=== PATIENT | male | born 1940 | race Caucasian/White ===

== ENCOUNTER → 2019-08-17 | Outpatient (CLI) | payer MEDICARE ==
--- NOTE | 2019-08-17 17:30 | RAD ---
CT HEAD WO CONTRAST Clinical indications: Mild cognitive impairment. COMPARISON: None available. Technique: Noncontrast axial cross sectional scanning of the head was performed. PQRS compliance Statement One or more of the following individualized dose reduction techniques were utilized for this study: 1. Automated exposure control 2. Adjustment of the mA and/or kV according to patient size 3. Use of iterative reconstruction technique Findings: No acute intracranial hemorrhage or midline shift or mass-effect or hydrocephalus or extra-axial fluid collection is seen. No focal hypodense area or sulci effacement is seen to indicate an acute infarct or edema radiographically. No skull fracture or pneumocephalus is seen. No opacification of the mastoid sinuses or the middle ear cavities or the paranasal sinuses is seen. The maxillary sinuses are not completely seen in this study. Impression: No acute intracranial abnormality is seen. Electronically signed by: Parth Cordova MD (08/17/2019 5:27 PM) [facility]
== END | disposition home or self-care (01) ==
LOC: CT 16:39
PROVIDERS: ATTEND Family Medicine
DX: G31.84 Mild cognitive impairment of uncertain or unknown etiology (principal)
CPT/HCPCS: 70450

== ENCOUNTER 2020-07-02 03:54 | Emergency (ER) | payer MEDICARE ==
[~2020-07-02] VITALS: Ht 177.8 cm; Wt 109.1 kg
[2020-07-02 04:13] VITALS: BP 149/79
--- NOTE | 2020-07-02 04:19 | PHYS DOC ---
General Adult EDM: Chief Complaint: FATIGUE HPI: HPI: 79-year-old male presents with generalized fatigue. The patient does not have a specific complaint but states that he feels "blah and not rested". He denies any pain. Denies changes in urinary or stool habits. He is getting ready to sell his house so he has been busy last couple of days. He admits to not taking all of his medications for 2 days. His recently and he will be selling his house. He denies fever or chills. Review of Systems: Review of Systems: Constitutional: Denies fever or chills. Fatigue Eyes: Denies change in visual acuity HENT: Denies nasal congestion or sore throat Respiratory: Denies cough or shortness of breath Cardiovascular: Denies chest pain or edema GI: Denies abdominal pain, nausea, vomiting, bloody stools or diarrhea : Denies dysuria Musculoskeletal: Denies back pain or joint pain Integument: Denies rash Neurologic: Denies headache, focal weakness or sensory changes Endocrine: Denies polyuria or polydipsia Lymphatic: Denies swollen glands Psychiatric: Denies depression or anxiety Allergies: Allergies: Allergies Coded Allergies Type Severity Reaction Last Updated Verified No Known Drug Allergies 07/02/20 No Physical Exam: PE: Constitutional: Well developed, well nourished, obese, no acute distress, non- toxic appearance. [] HENT: Normocephalic, atraumatic, bilateral external ears normal, oropharynx moist, no oral exudates, nose normal. [] Eyes: PERRLA, EOMI, conjunctiva normal, no discharge. [] Neck: Normal range of motion, no tenderness, supple, no stridor. [] Cardiovascular: Heart rate regular rhythm, no murmur [] Lungs & Thorax: Bilateral breath sounds clear to auscultation [] Abdomen: Bowel sounds normal, soft, no tenderness, no masses, no pulsatile masses. [] Skin: Warm, dry, no erythema, no rash. [] Back: No tenderness, no CVA tenderness. [] Extremities: No tenderness, no cyanosis, no clubbing, ROM intact, no edema. [] Neurologic: Alert and oriented X 3, normal motor function, normal sensory function, no focal deficits noted. [] Psychologic: Affect normal, judgement normal, mood normal. [] EKG: EKG: [] Radiology/Procedures: Radiology/Procedures: [] Heart Score: Risk Factors: Risk Factors: DM, Current or recent (<one month) smoker, HTN, HLP, family history of CAD, obesity. Risk Scores: Score 0 - 3: 2.5% MACE over next 6 weeks - Discharge Home Score 4 - 6: 20.3% MACE over next 6 weeks - Admit for Clinical Observation Score 7 - 10: 72.7% MACE over next 6 weeks - Early Invasive Strategies Course & Med Decision Making: Course & Med Decision Making Pertinent Labs and Imaging studies reviewed. (See chart for details) The patient's labs are unremarkable. His urinalysis is negative for infection. Her not sure exactly what causing the patient to feel fatigued. Maybe he just needs to get some more rest. I have reassured him with his negative results. He is stable for discharge at this time. [] Dragon Disclaimer: Dragon Disclaimer: This electronic medical record was generated, in whole or in part, using a voice recognition dictation system. Departure Departure: Impression: Primary Impression: Fatigue Disposition: 01 DC HOME SELF CARE/HOMELESS Condition: STABLE Referrals: MARLA BENZ MD (PCP) Patient Instructions: EVIE Rowe DO Jul 02, 2020 04:19
[2020-07-02] MEDS ORDERED: IV NORMAL SALINE 500ML 500 ML IV ONE (04:30)
[2020-07-02 04:52] LABS: BASO % 1 % (0-3); EOS # 0.3 x10^3/uL (0.0-0.7); EOS % 4 % (0-3); HEMATOCRIT 43.3 % (39.0-53.0); HEMOGLOBIN 14.3 g/dL (13.0-17.5); LYMPH # 1.2 x10^3/uL (1.0-4.8); LYMPH % 17 % (24-48); MEAN CORPUSCULAR HEMOGLOBIN 32 pg (25-35); MEAN CORPUSCULAR HGB CONC 33 g/dL (31-37); MEAN CORPUSCULAR VOLUME 98 fL (79-100); MONO # 0.9 x10^3/uL (0.0-1.1); MONO % 13 % (0-9); NEUT # 4.5 x10^3uL (1.8-7.7); NEUT % 65 % (31-73); PLATELET COUNT 184 x10^3/uL (140-400); RED BLOOD COUNT 4.44 x10^6/uL (4.30-5.70); RED CELL DISTRIBUTION WIDTH 13.9 % (11.5-14.5)
[2020-07-02 04:55] LABS: BILIRUBIN,URINE NEG (NEG); CLARITY,URINE CLEAR; COLOR,URINE YELLOW; GLUCOSE,URINE NEG (NEG)
[2020-07-02 04:56] LABS: BACTERIA,URINE 0 /HPF (0-FEW); NITRITE,URINE NEG (NEG); RBC,URINE 0 /HPF (0-2); SQUAMOUS EPITHELIAL CELL,UR MOD /LPF; UROBILINOGEN,URINE 0.2 mg/dL (0.2 mg/dL); WBC,URINE OCC /HPF (0-4)
[2020-07-02 04:57] LABS: CALCIUM 9.2 mg/dL (8.5-10.1); CREATININE 1.1 mg/dL (0.7-1.3); GFR 64.6; POTASSIUM 3.6 mmol/L (3.5-5.1)
[2020-07-02 05:05] LABS: ALBUMIN 3.5 g/dL (3.4-5.0); ALBUMIN/GLOBULIN RATIO 1.2 (1.0-1.7); TOTAL BILIRUBIN 0.9 mg/dL (0.2-1.0); TOTAL PROTEIN 6.4 g/dL (6.4-8.2)
== END 2020-07-02 05:58 | disposition home or self-care (01) ==
LOC: ER 03:54
DX: R53.83 Other fatigue (principal)
CPT/HCPCS: 36415; 80053; 81001; 85025; 99284; J7040

== ENCOUNTER 2020-08-06 23:24 | Observation (INO) | payer MEDICARE ==
[~2020-08-06] VITALS: Ht 177.8 cm; Wt 110.3 kg
--- NOTE | 2020-08-06 23:26 | PHYS DOC ---
Past History Past Medical History: Arthritis, CHF, Dementia, GERD, High Cholesterol Past Surgical History: Appendectomy Alcohol Use: None General Adult HPI: HPI: ".. I really don't know what going on.. I just got this really sharp pain in center... of my chest... I though I wanted to get it checked...out..." "I t lasted several minutes.. ".. " I sometimes get a dull pain...".." My wifed about a little over a year ago... I moved here when we got .... Still trying to clean out the house... all stuff that she keep.. all the stuff that her mother kept... I do get lonely... But anyway the pain was different than my usually dull pains .. I get in my chest... this was very sharp..." Patient is a 79 year old male who presents with above hx and complaints of central chest pain that was described as sharp. Pain reported last several minutes. No radiation. Nothing made it better or worse. No history of trauma. No history of cough fever chills. Patient was seen in the emergency department on 07/02 for generalized fatigue. Patient does have occasional dull pains in his chest but this was different than his usual dull pain. Patient denies previous cardiac dysfunction or myocardial infarcts. Does have history diabetes, hypertension, elevated lipids, family history of coronary artery disease, obesity, dementia and arthritis. 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 Patient follows Dr. Benz. Review of Systems: Review of Systems: Constitutional: Denies fever or chills Eyes: Denies change in visual acuity HENT: Denies nasal congestion or sore throat Respiratory: Denies cough or shortness of breath Cardiovascular: Complains of chest pain GI: Denies abdominal pain, nausea, vomiting, bloody stools or diarrhea : Denies dysuria Musculoskeletal: Complains of joint and arthritis pain Integument: Denies rash Neurologic: Denies headache, focal weakness or sensory changes Endocrine: Denies polyuria or polydipsia Lymphatic: Denies swollen glands Psychiatric: Denies depression or anxiety Family History: Family History: Noncontributory to presentation Current Medications: Current Meds: See nursing for home meds Allergies: Allergies: Allergies Coded Allergies Type Severity Reaction Last Updated Verified No Known Drug Allergies 07/02/20 No Physical Exam: PE: Constitutional: , no acute distress, non-toxic appearance. [] HENT: Normocephalic, atraumatic, bilateral external ears normal, oropharynx moist, no oral exudates, nose normal. [] Eyes: PERRLA, EOMI, conjunctiva normal, no discharge. [] Neck: Normal range of motion, no tenderness, supple, no stridor. [] Cardiovascular:Bradycardia Heart rate regular rhythm, no murmur [] Lungs & Thorax: Bilateral breath sounds equal apex with some basilar crackles auscultation [] Abdomen: Bowel sounds normal, soft, no tenderness, no masses, no pulsatile masses. Obese Skin: Warm, dry, no erythema, no rash. [] Back: No tenderness, no CVA tenderness. [] Extremities: No tenderness, no cyanosis, no clubbing, ROM intact, no edema. Arthritic changes Neurologic: Alert and oriented X 3, normal motor function, normal sensory function, no focal deficits noted. [] Psychologic: Affect anxious, some obvious short-term memory issues,, mood normal. [] EKG: EKG: My interpretation EKG shows a sinus rhythm at 76 bpm. No findings acute STEMI with contralateral changes. No obvious acute morphology. [] Radiology/Procedures: Radiology/Procedures: [][place] [address] IMAGING REPORT Signed PATIENT: GARRET CAMP ACCOUNT: [id number] : 1940 LOCATION: ER AGE: 79 SEX: M EXAM STATUS: PRE ER ORD. PHYSICIAN: PERLITA HIGH MD REASON: CP PROCEDURE: PORTABLE CHEST 1V PORTABLE CHEST 1V INDICATION: Reason: CP / Spl. Instructions: / History: . COMPARISON STUDY: None. FINDINGS: Lungs: Normal lung volume. No focal airspace disease. Normal pulmonary vasculature. Pleura: No pleural effusion or pneumothorax. Heart and Mediastinum: Cardiomegaly. Great vessels thorax are normal. IMPRESSION: No consolidation. Electronically signed by: Penny Giles MD (08/07/2020 12:08 AM) [facility] DICTATED AND SIGNED BY: PENNY GILES MD DATE: 08/07/20 0008 CC: MARLA BENZ MD; PERLITA HIGH MD ~MTH0 0 Heart Score: HEART Score for Chest Pain: HEART Score for Chest Pain Response (Comments) Value History Slighlty/Non-Suspicious 0 ECG Normal 0 Age > 65 2 Troponin < Normal Limit 0 Total 2 Risk Factors: Risk Factors: DM, Current or recent (<one month) smoker, HTN, HLP, family history of CAD, obesity. Risk Scores: Score 0 - 3: 2.5% MACE over next 6 weeks - Discharge Home Score 4 - 6: 20.3% MACE over next 6 weeks - Admit for Clinical Observation Score 7 - 10: 72.7% MACE over next 6 weeks - Early Invasive Strategies Course & Med Decision Making: Course & Med Decision Making Pertinent Labs and Imaging studies reviewed. (See chart for details) Discussed presentation, testing and treatment plan with Dr. Benz. Advised admit and cardiology consult. Impression: 1. Chest Pain 2. HTN 3. Arthritis 4. DM 5. Dementia [] Dragon Disclaimer: Dragon Disclaimer: This electronic medical record was generated, in whole or in part, using a voice recognition dictation system. Departure Departure: Referrals: MARLA BENZ MD (PCP) Dragon Disclaimer This chart was dictated in whole or in part using Voice Recognition software in a busy, high-work load, and often noisy Emergency Department environment. It may contain unintended and wholly unrecognized errors or omissions. Dragon Disclaimer This chart was dictated in whole or in part using Voice Recognition software in a busy, high-work load, and often noisy Emergency Department environment. It may contain unintended and wholly unrecognized errors or omissions. Dragon Disclaimer This chart was dictated in whole or in part using Voice Recognition software in a busy, high-work load, and often noisy Emergency Department environment. It may contain unintended and wholly unrecognized errors or omissions. PERLITA HIGH MD Aug 06, 2020 23:26
[2020-08-06] MEDS ORDERED: IV RINGERS SOLUTION,LACTATED 1,000 ML IV SCH (23:45)
[2020-08-06] MEDS ORDERED: ASPIRIN CHEWABLE 81 MG TABLET. PO ONE (23:45)
[2020-08-07 00:08] LABS: BASO # 0.1 x10^3/uL (0.0-0.2); BASO % 1 % (0-3); EOS # 0.5 x10^3/uL (0.0-0.7); EOS % 6 % (0-3); HEMATOCRIT 43.8 % (39.0-53.0); HEMOGLOBIN 14.3 g/dL (13.0-17.5); LYMPH # 1.7 x10^3/uL (1.0-4.8); LYMPH % 22 % (24-48); MEAN CORPUSCULAR HEMOGLOBIN 32 pg (25-35); MEAN CORPUSCULAR HGB CONC 33 g/dL (31-37); MEAN CORPUSCULAR VOLUME 98 fL (79-100); MONO # 1.2 x10^3/uL (0.0-1.1); MONO % 15 % (0-9); NEUT # 4.4 x10^3uL (1.8-7.7); NEUT % 57 % (31-73); PLATELET COUNT 194 x10^3/uL (140-400); RED BLOOD COUNT 4.47 x10^6/uL (4.30-5.70); RED CELL DISTRIBUTION WIDTH 14.1 % (11.5-14.5); WHITE BLOOD COUNT 7.8 x10^3/uL (4.0-11.0)
--- NOTE | 2020-08-07 00:11 | RAD ---
PORTABLE CHEST 1V INDICATION: Reason: CP / Spl. Instructions: / History: . COMPARISON STUDY: None. FINDINGS: Lungs: Normal lung volume. No focal airspace disease. Normal pulmonary vasculature. Pleura: No pleural effusion or pneumothorax. Heart and Mediastinum: Cardiomegaly. Great vessels thorax are normal. IMPRESSION: No consolidation. Electronically signed by: Saman Giles MD (08/07/2020 12:08 AM) [facility]
--- NOTE | 2020-08-07 00:19 | EKG ---
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
[2020-08-07 00:20] LABS: CALCIUM 8.1 mg/dL (8.5-10.1); GFR 72.1
[2020-08-07 00:32] LABS: ALBUMIN 3.5 g/dL (3.4-5.0); DIRECT BILIRUBIN 0.1 mg/dL (0.0-0.2); MAGNESIUM 2.1 mg/dL (1.8-2.4); TOTAL BILIRUBIN 0.3 mg/dL (0.2-1.0); TOTAL PROTEIN 6.4 g/dL (6.4-8.2)
[2020-08-07] MEDS ORDERED: ONDANSETRON PF 4 MG/2 ML VIAL. IVP PRN (01:00)
[2020-08-07] MEDS ORDERED: ACETAMINOPHEN 325 MG TABLET PO PRN (01:00)
[2020-08-07] MEDS ORDERED: ASPIRIN 325 MG TABLET PO ONE (01:30)
[2020-08-07] MEDS ORDERED: IPRATRPIUM/ALBUTEROL 0.5/2.5MG 3 ML NEBU. ONE (01:31)
[2020-08-07 03:10] VITALS: BP 148/75
[2020-08-07 05:39] VITALS: BP 102/63
[2020-08-07 06:09] LABS: BARBITURATES NEG (NEG); BENZODIAZEPINES NEG (NEG); CANNABINOIDS NEG (NEG); COCAINE NEG (NEG); METHADONE NEG (NEG); OPIATES NEG (NEG); PHENCYCLIDINE NEG (NEG)
[2020-08-07 06:15] LABS: BILIRUBIN,URINE NEG (NEG); CLARITY,URINE HAZY; COLOR,URINE AMBER; GLUCOSE,URINE NEG (NEG); NITRITE,URINE NEG (NEG); UROBILINOGEN,URINE 0.2 mg/dL (0.2 mg/dL)
[2020-08-07 06:16] LABS: BACTERIA,URINE FEW /HPF (0-FEW); SQUAMOUS EPITHELIAL CELL,UR MOD /LPF
[2020-08-07 06:24] LABS: AMPHETAMINE/METHAMPHETAMINE NEG (NEG)
--- NOTE | 2020-08-07 07:33 | NUR ---
Respiratory theapy requests this patients breathing txs be discontinued. Spo2 normal on RA. CXR normal. No history of breathing issues or home meds. Pt denied cough or SOA on admission and was admitted for Chest pain. There is no medical reason for breathing txs and they should be discontinued. Thank you, Jsharp FILLER SIFTER MACHINE
--- NOTE | 2020-08-07 07:55 | PDOC2 ---
CARDIAC CONSULT DATE OF CONSULT DOS: DATE: 08/07/20 TIME: 07:52 REASON FOR CONSULT Reason for Consult Chest pain REFERRING PHYSICIAN Referring Physician Dr. Rico SOURCE Source: Chart review, Patient HPI History of Present Illness This is a 79 yo male who presented secondary to chest pain. Describes as brief, sharp pain. Located in his central chest. Was like a "jolt" of pain and then went away. No associated dizziness, diaphoresis, palpitations, or SOA. Had never experienced pain like this before so he decided to come to the ED for further evaluation and treatment. Is quite anxious to be discharge this morning as he has things to do. PAST MEDICAL HISTORY Cardiovascular: HTN CENTRAL NERVOUS SYSTEM: Dementia GI: GERD Endocrine: Diabetes PAST SURGICAL HISTORY Past Surgical History: No pertinent history FAMILY HISTORY Family History: Coronary Artery Disease SOCIAL HISTORY Smoke: No ALCOHOL: none Drugs: None Lives: Alone CURRENT MEDICATIONS Current Medications Current Medications Aspirin (Aspirin Chewable) 324 mg 1X ONCE PO Last administered on 08/07/20at 00:01; Start 08/06/20 at 23:45; Stop 08/06/20 at 23:56; Status DC Lactated Ringer's 1,000 ml @ 100 mls/hr Q10H IV Last administered on 08/07/20at 00:01; Start 08/06/20 at 23:45; Stop 08/07/20 at 09:44 Ondansetron HCl (Zofran) 4 mg PRN Q4HRS PRN IVP NAUSEA/VOMITING; Start 08/07/20 at 01:00; Stop 08/08/20 at 00:59 Acetaminophen (Tylenol) 650 mg PRN Q4HRS PRN PO FEVER > 100.3'F; Start 08/07/20 at 01:00; Stop 08/08/20 at 00:59 Albuterol/ Ipratropium (Duoneb) 3 ml RTQID NEB Last administered on 08/07/20at 05:17; Start 08/07/20 at 08:00; Stop 08/08/20 at 07:59 Aspirin (Ange Aspirin) 81 mg 1X ONCE PO ; Start 08/07/20 at 01:30; Stop 08/07/20 at 01:50; Status DC Albuterol/ Ipratropium (Duoneb) 3 ml STK-MED ONCE .ROUTE ; Start 08/07/20 at 01:31; Stop 08/07/20 at 01:31; Status DC Influenza Virus Vaccine Quadrival (Fluzone Quad Syringe) 0.5 ml ONCE ONCE VAX IM ; Start 08/07/20 at 09:00; Stop 08/07/20 at 09:01 ALLERGIES Allergies: Coded Allergies: No Known Drug Allergies (Unverified , 07/02/20) ROS Review of Systems 14 point ROS conducted with pertinent positives noted above in HPI PHYSICAL EXAM General: Alert, Oriented X3, Cooperative, No acute distress HEENT: Atraumatic Lungs: Clear to auscultation Heart: Regular rate Abdomen: Soft, No tenderness Extremities: No edema, Normal pulses Skin: No breakdown Neuro: Normal speech, Sensation intact Psych/Mental Status: Other (anxious, forgetful ) MUSCULOSKELETAL: Osteoarthritic changes both hands, Abn muscle tone of VITALS Vital Signs Vital Signs Date Time Temp Pulse Resp B/P (MAP) Pulse Ox O2 Delivery O2 Flow Rate FiO2 08/07/20 05:39 97.5 75 18 102/63 (76) 93 Room Air LABS LABS Laboratory Tests Test 08/06/20 23:40 08/07/20 02:40 08/07/20 05:50 08/07/20 05:55 White Blood Count 7.8 x10^3/uL (4.0-11.0) Red Blood Count 4.47 x10^6/uL (4.30-5.70) Hemoglobin 14.3 g/dL (13.0-17.5) Hematocrit 43.8 % (39.0-53.0) Mean Corpuscular Volume 98 fL (79-100) Mean Corpuscular Hemoglobin 32 pg (25-35) Mean Corpuscular Hemoglobin Concent 33 g/dL (31-37) Red Cell Distribution Width 14.1 % (11.5-14.5) Platelet Count 194 x10^3/uL (140-400) Neutrophils (%) (Auto) 57 % (31-73) Lymphocytes (%) (Auto) 22 % (24-48) Monocytes (%) (Auto) 15 % (0-9) Eosinophils (%) (Auto) 6 % (0-3) Basophils (%) (Auto) 1 % (0-3) Neutrophils # (Auto) 4.4 x10^3uL (1.8-7.7) Lymphocytes # (Auto) 1.7 x10^3/uL (1.0-4.8) Monocytes # (Auto) 1.2 x10^3/uL (0.0-1.1) Eosinophils # (Auto) 0.5 x10^3/uL (0.0-0.7) Basophils # (Auto) 0.1 x10^3/uL (0.0-0.2) Prothrombin Time 9.5 SEC (9.4-11.4) Prothromb Time International Ratio 0.9 (0.9-1.1) Activated Partial Thromboplast Time 25 SEC (23-33) D-Dimer (Alejandra) 0.40 mg/L (0.00-0.50) Sodium Level 141 mmol/L (136-145) Potassium Level 4.0 mmol/L (3.5-5.1) Chloride Level 105 mmol/L (98-107) Carbon Dioxide Level 26 mmol/L (21-32) Anion Gap 10 (6-14) Blood Urea Nitrogen 14 mg/dL (8-26) Creatinine 1.0 mg/dL (0.7-1.3) Estimated GFR (Cockcroft-Gault) 72.1 Glucose Level 99 mg/dL (70-99) Calcium Level 8.1 mg/dL (8.5-10.1) Magnesium Level 2.1 mg/dL (1.8-2.4) Total Bilirubin 0.3 mg/dL (0.2-1.0) Direct Bilirubin 0.1 mg/dL (0.0-0.2) Aspartate Amino Transf (AST/SGOT) 16 U/L (15-37) Alanine Aminotransferase (ALT/SGPT) 20 U/L (16-63) Alkaline Phosphatase 70 U/L (46-116) Creatine Kinase 49 U/L (39-308) Troponin I Quantitative < 0.017 ng/mL (0-0.055) < 0.017 ng/mL (0-0.055) < 0.017 ng/mL (0-0.055) US-Nwb-F-Type Natriuretic Peptide 102 pg/mL (0-449) Total Protein 6.4 g/dL (6.4-8.2) Albumin 3.5 g/dL (3.4-5.0) Lipase 122 U/L (73-393) Urine Collection Type Unknown Urine Color Evelia Urine Clarity Hazy Urine pH 6.0 Urine Specific Varina 1.025 Urine Protein Neg (NEG-TRACE) Urine Glucose (UA) Neg mg/dL (NEG) Urine Ketones (Stick) Neg mg/dL (NEG) Urine Blood Neg (NEG) Urine Nitrite Neg (NEG) Urine Bilirubin Neg (NEG) Urine Urobilinogen Dipstick 0.2 mg/dL (0.2 mg/dL) Urine Leukocyte Esterase Neg (NEG) Urine RBC 1-2 /HPF (0-2) Urine WBC 1-4 /HPF (0-4) Urine Squamous Epithelial Cells Mod /LPF Urine Bacteria Few /HPF (0-FEW) Urine Mucus Slight /LPF Urine Opiates Screen Neg (NEG) Urine Methadone Screen Neg (NEG) Urine Barbiturates Neg (NEG) Urine Phencyclidine Screen Neg (NEG) Urine Amphetamine/Methamphetamine Neg (NEG) Urine Benzodiazepines Screen Neg (NEG) Urine Cocaine Screen Neg (NEG) Urine Cannabinoids Screen Neg (NEG) Urine Ethyl Alcohol Neg (NEG) ASSESSMENT/PLAN Assessment/Plan 1. Chest pain, atypical. AMI ruled out. 2. Hypertension; controlled 3. Diabetes, II 4. GERD Recommendations Lipids, TSH ASA therapy Discussed further ischemic evaluation with outpatient stress test given chest pain and risk factors. Patient does not feel this is necessary Okay to discharge from a CV standpoint. ERIC CASAS APRN Aug 07, 2020 07:55
[2020-08-07] MEDS ORDERED: IPRATRPIUM/ALBUTEROL 0.5/2.5MG 3 ML NEBU. NEB SCH (08:00)
[2020-08-07] MEDS ORDERED: ASPIRIN ENTERIC COATED 81 MG TABLET.DR. PO SCH (08:00)
[2020-08-07] MEDS ORDERED: FLU VACC QS 2020-21(6MOS+)/PF 0.5 ML SYRINGE. VAX IM ONE (09:00)
--- NOTE | 2020-08-07 09:35 | NUR ---
DISCHARGE NOTE-Pt insists on discharge this morning. Discontinues IV himself, without staff present. Orders DC to home, papers prepared et presented to pt. All belongings sent with patient at time of discharge. He is ambulatory to front door from room with staff.
[2020-08-07 18:04] LABS: THYROID STIM HORMONE (TSH) 1.921 uIU/mL (0.358-3.740)
== END 2020-08-07 09:12 | disposition home or self-care (01) ==
LOC: ER 23:24 → 1 SOUTH 08-07 01:58
PROVIDERS: ADMIT Family Medicine; ATTEND Family Medicine
DX: R07.89 Other chest pain (principal); I11.0 Hypertensive heart disease with heart failure; I50.9 Heart failure, unspecified; K21.9 Gastro-esophageal reflux disease without esophagitis; E78.00 Pure hypercholesterolemia, unspecified; M19.90 Unspecified osteoarthritis, unspecified site; F02.80 Dementia in other diseases classified elsewhere, unspecified severity, without behavioral disturbance, psychotic disturbance, mood disturbance, and anxiety; E11.9 Type 2 diabetes mellitus without complications; Z90.49 Acquired absence of other specified parts of digestive tract
CPT/HCPCS: 36415; 71045; 80048; 80061; 80076; 80307; 81001; 82550; 82947; 83690; 83735; 83880; 84443; 84484; 85025; 85379; 85610; 85730; 93005; 94640; 96360; 96361; 99285; G0378; J7120; G0379

== ENCOUNTER 2020-09-18 10:54 | Emergency (ER) | payer MEDICARE ==
[~2020-09-18] VITALS: Ht 177.8 cm; Wt 110.0 kg
[2020-09-18] MEDS ORDERED: ASPIRIN CHEWABLE 81 MG TABLET. PO ONE (11:30)
[2020-09-18 11:34] LABS: BASO # 0.1 x10^3/uL (0.0-0.2); BASO % 1 % (0-3); EOS # 0.6 x10^3/uL (0.0-0.7); EOS % 8 % (0-3); HEMOGLOBIN 14.5 g/dL (13.0-17.5); LYMPH # 1.3 x10^3/uL (1.0-4.8); LYMPH % 18 % (24-48); MEAN CORPUSCULAR HEMOGLOBIN 32 pg (25-35); MEAN CORPUSCULAR HGB CONC 34 g/dL (31-37); MEAN CORPUSCULAR VOLUME 96 fL (79-100); MONO # 1.1 x10^3/uL (0.0-1.1); MONO % 15 % (0-9); NEUT # 4.1 x10^3uL (1.8-7.7); NEUT % 58 % (31-73); PLATELET COUNT 183 x10^3/uL (140-400); RED CELL DISTRIBUTION WIDTH 13.5 % (11.5-14.5); WHITE BLOOD COUNT 7.1 x10^3/uL (4.0-11.0)
[2020-09-18 11:44] LABS: CALCIUM 8.6 mg/dL (8.5-10.1); GFR 72.1; POTASSIUM 4.1 mmol/L (3.5-5.1)
--- NOTE | 2020-09-18 11:45 | RAD ---
XR CHEST 1V CLINICAL INDICATIONS: Chest pain: Comparison: August 06, 2020 Findings: No acute lung infiltrate or pleural effusion or pulmonary edema or lung mass or pneumothora x is seen. The heart size, pulmonary vasculature, mediastinum and both piotr are unremarkable. IMPRESSION: No acute radiographic abnormality is seen. Electronically signed by: Parth Cordova MD (09/18/2020 11:43 AM) [id number]
[2020-09-18 11:56] LABS: ALBUMIN 3.6 g/dL (3.4-5.0); ALBUMIN/GLOBULIN RATIO 1.1 (1.0-1.7); TOTAL BILIRUBIN 0.4 mg/dL (0.2-1.0); TOTAL PROTEIN 6.8 g/dL (6.4-8.2)
--- NOTE | 2020-09-18 11:56 | PHYS DOC ---
Past History Past Medical History: Arthritis, CHF, Dementia, GERD, High Cholesterol Past Surgical History: Appendectomy Alcohol Use: None Adult General Chief Complaint Chief Complaint: CHEST PAIN HPI HPI Patient is a 79yo male presenting for chest discomfort. States this is a chronic problem, experiences generalized chest discomfort, "not pain" most nights about 1-2 hours after eating. Nothing known makes better or worse. Discomfort is "across my whole chest" without radiation or tearing, is not sharp, just dull and aching in nature. Episodes are 5/10 severity and self resolve after <30mins. He has been experiencing episodes like these most night for past few weeks to months. Denies any cardiac history, admits history of outpatient provocative cardiac testing "a few years ago" but no history of cath and/or PCI. Patient went to PCP's office for evaluation and discussed symptoms. He had a chest x-ray and non-concerning EKG performed but given symptoms, he was advised to come to our ER for faster evaluation Review of Systems Review of Systems Fourteen body systems of review of systems have been reviewed. See HPI for pertinent positives and negative responses, other gonzalez all other systems are negative, non-pertinent or non-contributory Current Medications Current Medications Current Medications Medications (Trade) Dose Ordered Sig/Huey Start Time Stop Time Status Last Admin Dose Admin Aspirin (Aspirin Chewable) 162 mg 1X ONCE 09/18/20 11:30 09/18/20 11:31 DC Allergies Allergies Allergies Coded Allergies Type Severity Reaction Last Updated Verified No Known Drug Allergies 09/18/20 No Physical Exam Physical Exam Constitutional: Well developed, well nourished, no acute distress, non-toxic appearance. HENT: Normocephalic, atraumatic, bilateral external ears normal, oropharynx moist, no oral exudates, nose normal. Eyes: PERRLA, EOMI, conjunctiva normal, no discharge. Neck: Normal range of motion, no tenderness, supple, no stridor. Cardiovascular: Heart rate regular, sinus rhythm Lungs & Thorax: Bilateral breath sounds clear to auscultation Abdomen: Bowel sounds normal, soft, no tenderness, no masses, no pulsatile masses. Nonsurgical abdomen, no peritoneal signs Skin: Warm, dry, no erythema, no rash. Back: No tenderness, no CVA tenderness. Extremities: No tenderness, no cyanosis, no clubbing, ROM intact, no edema. Neurologic: Alert and oriented X 3, grossly normal motor & sensory function, no focal deficits noted. Psychologic: Angry affect, judgement normal, mood normal. Current Patient Data Vital Signs Vital Signs Date Time Temp Pulse Resp B/P (MAP) Pulse Ox O2 Delivery O2 Flow Rate FiO2 09/18/20 10:57 98.3 77 20 123/51 (75) 96 Room Air Lab Results Laboratory Tests Test 09/18/20 11:23 White Blood Count 7.1 x10^3/uL (4.0-11.0) Red Blood Count 4.50 x10^6/uL (4.30-5.70) Hemoglobin 14.5 g/dL (13.0-17.5) Hematocrit 43.0 % (39.0-53.0) Mean Corpuscular Volume 96 fL (79-100) Mean Corpuscular Hemoglobin 32 pg (25-35) Mean Corpuscular Hemoglobin Concent 34 g/dL (31-37) Red Cell Distribution Width 13.5 % (11.5-14.5) Platelet Count 183 x10^3/uL (140-400) Neutrophils (%) (Auto) 58 % (31-73) Lymphocytes (%) (Auto) 18 % (24-48) L Monocytes (%) (Auto) 15 % (0-9) H Eosinophils (%) (Auto) 8 % (0-3) H Basophils (%) (Auto) 1 % (0-3) Neutrophils # (Auto) 4.1 x10^3uL (1.8-7.7) Lymphocytes # (Auto) 1.3 x10^3/uL (1.0-4.8) Monocytes # (Auto) 1.1 x10^3/uL (0.0-1.1) Eosinophils # (Auto) 0.6 x10^3/uL (0.0-0.7) Basophils # (Auto) 0.1 x10^3/uL (0.0-0.2) Sodium Level 139 mmol/L (136-145) Potassium Level 4.1 mmol/L (3.5-5.1) Chloride Level 104 mmol/L (98-107) Carbon Dioxide Level 29 mmol/L (21-32) Anion Gap 6 (6-14) Blood Urea Nitrogen 16 mg/dL (8-26) Creatinine 1.0 mg/dL (0.7-1.3) Estimated GFR (Cockcroft-Gault) 72.1 BUN/Creatinine Ratio 16 (6-20) Glucose Level 108 mg/dL (70-99) H Calcium Level 8.6 mg/dL (8.5-10.1) Total Bilirubin Pending Aspartate Amino Transferase (AST) Pending Alanine Aminotransferase (ALT) Pending Alkaline Phosphatase Pending Troponin I Quantitative < 0.017 ng/mL (0-0.055) ZI-Ati-N-Type Natriuretic Peptide Pending Total Protein Pending Albumin Pending Albumin/Globulin Ratio Pending Lipase Pending EKG EKG EKG ordered and interpreted by myself at 1109 hrs. as sinus rhythm at 71 bpm, unremarkable intervals, no axis deviation, no acute ischemic findings, no STEMI Prior EKG obtained at primary care physician's office earlier in the day was reviewed for comparison, there are no changes Radiology/Procedures Radiology/Procedures XR CHEST 1V CLINICAL INDICATIONS: Chest pain: Comparison: August 06, 2020 Findings: No acute lung infiltrate or pleural effusion or pulmonary edema or lung mass or pneumothorax is seen. The heart size, pulmonary vasculature, mediastinum and both piotr are unremarkable. IMPRESSION: No acute radiographic abnormality is seen. Electronically signed by: Parth Cordova MD (09/18/2020 11:43 AM) [id number] Heart Score HEART Score for Chest Pain: HEART Score for Chest Pain Response (Comments) Value History Slighlty/Non-Suspicious 0 ECG Normal 0 Age > 65 2 Risk Factors 1 or 2 Risk Factors 1 Troponin < Normal Limit 0 Total 3 Risk Factors: Risk Factors: DM, Current or recent (<one month) smoker, HTN, HLP, family history of CAD, obesity. Risk Scores: Risk Factors: DM, Current or recent (<one month) smoker, HTN, HLP, family history of CAD, obesity. Course & Med Decision Making Course & Med Decision Making Pertinent Labs and Imaging studies reviewed. (See chart for details) Discussed patient was likely suffering from atypical chest pain such as GERD vs other. I discussed HEART score and potential for cardiac observation but patient adamantly refusing, states he would rather go home and follow-up with PCP for fu rther provocative cardiac testing SRP discussed with good understanding, all questions and concerns addressed prior to ER departure Dragon Disclaimer Dragon Disclaimer This electronic medical record was generated, in whole or in part, using a voice recognition dictation system. Departure Departure: Impression: Primary Impression: Chest pain, unspecified Disposition: 01 DC HOME SELF CARE/HOMELESS Condition: STABLE Referrals: MARLA BENZ MD (PCP) Patient Instructions: Chest Pain (Nonspecific) Additional Instructions: You were seen for chest pain. Your workup did not show any acute abnormalities today, but does not indicate that you do not have underlying cardiovascular disease. 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 You should return to the ED if you develop worsening chest pain, shortness of breath, fever, abnormal sweating, leg swelling, or any other new or concerning symptoms. Scripts No Active Prescriptions or Reported Meds SALVATORE NERI DO Sep 18, 2020 11:56
[2020-09-18 12:58] VITALS: BP 145/72
--- NOTE | 2020-09-18 13:08 | EKG ---
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
== END 2020-09-18 13:03 | disposition home or self-care (01) ==
LOC: ER 10:54
DX: R07.89 Other chest pain (principal); M19.90 Unspecified osteoarthritis, unspecified site; I50.9 Heart failure, unspecified; K21.9 Gastro-esophageal reflux disease without esophagitis; E78.00 Pure hypercholesterolemia, unspecified; F03.90 Unspecified dementia, unspecified severity, without behavioral disturbance, psychotic disturbance, mood disturbance, and anxiety; Z90.89 Acquired absence of other organs
CPT/HCPCS: 36415; 71045; 80053; 83690; 83880; 84484; 85025; 93005; 99285

== ENCOUNTER → 2021-04-24 | Emergency (ER) | payer MEDICARE ==
--- NOTE | 2021-04-24 17:00 | PHYS DOC ---
Past History Past Medical History: Arthritis, CHF, Dementia, GERD, High Cholesterol Past Surgical History: Appendectomy Alcohol Use: None Adult General Chief Complaint Chief Complaint: EYE PROBLEMS HPI HPI Patient is a [age] year old [sex] who presents with [] Review of Systems Review of Systems Fourteen body systems of review of systems have been reviewed. See HPI for pertinent positives and negative responses, other gonzalez all other systems are negative, non-pertinent or non-contributory Allergies Allergies Allergies Coded Allergies Type Severity Reaction Last Updated Verified No Known Drug Allergies 09/18/20 No Physical Exam Physical Exam Constitutional: Well developed, well nourished, no acute distress, non-toxic appearance. HENT: Normocephalic, atraumatic, bilateral external ears normal, oropharynx moist, no oral exudates, nose normal. Eyes: PERRLA, EOMI, conjunctiva normal, no discharge. Neck: Normal range of motion, no tenderness, supple, no stridor. Cardiovascular: Heart rate regular per monitor Lungs & Thorax: No respiratory distress or accessory muscle use, bilateral chest rise Abdomen: Abdomen soft, non-tender, bowel sounds present in all quadrants, no guarding or rebound, nonacute abdomen. Skin: Warm, dry, no erythema, no rash. Back: No tenderness, no CVA tenderness. Extremities: No tenderness, no cyanosis, no clubbing, ROM intact, no edema. Neurologic: Alert and oriented X 3, grossly normal motor & sensory function, no focal deficits noted. Psychologic: Affect normal, judgement normal, mood normal. EKG EKG [] Radiology/Procedures Radiology/Procedures [] Heart Score Risk Factors: Risk Factors: DM, Current or recent (<one month) smoker, HTN, HLP, family history of CAD, obesity. Risk Scores: Risk Factors: DM, Current or recent (<one month) smoker, HTN, HLP, family history of CAD, obesity. Course & Med Decision Making Course & Med Decision Making Pertinent Labs and Imaging studies reviewed. (See chart for details) [] Dragon Disclaimer Dragon Disclaimer This electronic medical record was generated, in whole or in part, using a voice recognition dictation system. 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 There is no indication for any further intervention such as antibiotics. Continued supportive care practices such as eye irrigation with water and normal saline drops with close Ortho evaluation is advised At home: *Clean your eyes with a warm wash cloth as needed *Encourage frequent hand washing Contact your eye doctor if your eyes worsens or fails to improve in the next 2-3 days. Return to your doctor or the Emergency Room if you feel worse, develop a fever, has increasing redness/pain/swelling around the eyes, has trouble with your vision, or if you have any other concerns. Thank you for allowing us to participate in your care! Scripts No Active Prescriptions or Reported Meds SALVATORE NERI DO Apr 24, 2021 17:00
== END | disposition home or self-care (01) ==
LOC: ER 16:26
DX: H57.89 Other specified disorders of eye and adnexa (principal); M19.90 Unspecified osteoarthritis, unspecified site; I50.9 Heart failure, unspecified; K21.9 Gastro-esophageal reflux disease without esophagitis; E78.00 Pure hypercholesterolemia, unspecified; F03.90 Unspecified dementia, unspecified severity, without behavioral disturbance, psychotic disturbance, mood disturbance, and anxiety
CPT/HCPCS: 99281

== ENCOUNTER 2021-05-22 13:49 | Emergency (ER) | payer MEDICARE ==
[~2021-05-22] VITALS: Ht 177.8 cm; Wt 117.2 kg
--- NOTE | 2021-05-22 14:09 | PHYS DOC ---
Past History Past Medical History: Arthritis, CHF, Dementia, GERD, High Cholesterol (LIYAH TIJERINA APRN) Past Surgical History: Appendectomy (LIYAH TIJERINA APRN) Alcohol Use: None (LIYAH TIJERINA APRN) General Adult EDM: Chief Complaint: SHORTNESS OF BREATH HPI: HPI: Patient is an 80-year-old male being seen in the ER today for shortness of breath and increased leg swelling started this morning. Patient denies any cough, fever, chest pain, sick exposures. His primary care provider is Dr. Diaz. Patient has a history of CHF and hyperlipidemia. (LIYAH TIJERINA APRN) Review of Systems: Review of Systems: 14 body systems of the review of systems have been reviewed. See HPI for pertinent positive and negative responses, otherwise all other systems are negative, nonpertinent or noncontributory (LIYAH TIJERINA APRN) Allergies: Allergies: Allergies Coded Allergies Type Severity Reaction Last Updated Verified No Known Drug Allergies 09/18/20 No (LIYAH TIJERINA APRN) Physical Exam: PE: Constitutional: Well developed, well nourished, no acute distress, non-toxic appearance. [] HENT: Normocephalic, atraumatic, bilateral external ears normal, oropharynx moist, no oral exudates, nose normal. [] Eyes: PERRL, EOMI, conjunctiva normal, no discharge. [] Neck: Normal range of motion, no stridor Cardiovascular:Heart rate regular rhythm, no murmur [] Lungs & Thorax: Bilateral breath sounds clear to auscultation [] Abdomen: Bowel sounds normal, soft, no tenderness, no masses, no pulsatile masses. [] Skin: Warm, dry, no erythema, no rash. [] Back: Normal range of motion Extremities: No tenderness, no cyanosis, no clubbing, ROM intact, 3+ pitting edema noted to bilateral lower extremities Neurologic: Alert and oriented X 3, normal motor function, normal sensory function, no focal deficits noted. [] Psychologic: Affect normal, judgement normal, mood normal. [] (LIYAH TIJERINA APRN) Current Patient Data: Labs: Laboratory Tests Test 05/22/21 14:13 White Blood Count 11.9 x10^3/uL Red Blood Count 4.41 x10^6/uL Hemoglobin 14.5 g/dL Hematocrit 43.5 % Mean Corpuscular Volume 99 fL Mean Corpuscular Hemoglobin 33 pg Mean Corpuscular Hemoglobin Concent 33 g/dL Red Cell Distribution Width 14.2 % Platelet Count 164 x10^3/uL Neutrophils (%) (Auto) 83 % Lymphocytes (%) (Auto) 4 % Monocytes (%) (Auto) 9 % Eosinophils (%) (Auto) 3 % Basophils (%) (Auto) 1 % Neutrophils # (Auto) 9.9 x10^3uL Lymphocytes # (Auto) 0.5 x10^3/uL Monocytes # (Auto) 1.0 x10^3/uL Eosinophils # (Auto) 0.4 x10^3/uL Basophils # (Auto) 0.1 x10^3/uL Sodium Level 140 mmol/L Potassium Level 3.9 mmol/L Chloride Level 104 mmol/L Carbon Dioxide Level 28 mmol/L Anion Gap 8 Blood Urea Nitrogen 12 mg/dL Creatinine 0.9 mg/dL Estimated GFR (Cockcroft-Gault) 81.2 BUN/Creatinine Ratio 13 Glucose Level 130 mg/dL Lactic Acid Level 1.7 mmol/L Calcium Level 8.1 mg/dL Total Bilirubin 0.7 mg/dL Aspartate Amino Transf (AST/SGOT) 17 U/L Alanine Aminotransferase (ALT/SGPT) 29 U/L Alkaline Phosphatase 68 U/L Troponin I Quantitative < 0.017 ng/mL SN-Ebg-L-Type Natriuretic Peptide 95 pg/mL Total Protein 6.6 g/dL Albumin 3.8 g/dL Albumin/Globulin Ratio 1.4 (LIYAH TIJERINA CUFF TURNER) EKG: EKG: EKG performed at 1414 shows sinus rhythm, no STEMI read by Dr. Neri at 1423 [] (LIYAH TIJERINA CUFF TURNER) Radiology/Procedures: Radiology/Procedures: REASON: soa PROCEDURE: CHEST AP ONLY XR CHEST 1V CLINICAL INDICATIONS: Shortness of air COMPARISON: September 18, 2020. Findings: No acute lung infiltrate or pleural effusion or pulmonary edema or lung mass or pneumothorax is seen. The heart size, pulmonary vasculature, mediastinum and both piotr are unremarkable. IMPRESSION: No acute radiographic abnormality is seen. Electronically signed by: Mae Cordova MD (05/22/2021 2:44 PM) [id number] DICTATED AND SIGNED BY: MAE CORDOVA MD DATE: 05/22/21 1437 CC: MARLA BENZ MD; LIYAH TIJERINA APRN ~MTH0 0 [] (LIYAH TIJERINA APRN) Heart Score: C/O Chest Pain: No Risk Factors: Risk Factors: DM, Current or recent (<one month) smoker, HTN, HLP, family history of CAD, obesity. Risk Scores: Score 0 - 3: 2.5% MACE over next 6 weeks - Discharge Home Score 4 - 6: 20.3% MACE over next 6 weeks - Admit for Clinical Observation Score 7 - 10: 72.7% MACE over next 6 weeks - Early Invasive Strategies (LIYAH TIJERINA APRN) Course & Med Decision Making: Course & Med Decision Making Pertinent Labs and Imaging studies reviewed. (See chart for details) [] Patient is an 80-year-old male being seen in the ER for shortness of breath and increased leg swelling that started this morning. Work-up in the ER consisted of blood work, EKG, chest x-ray. Patient's vital signs are stable. Lab work was unremarkable. Patient had negative troponin. Negative chest x- ray. BNP was 95. I spoke to Dr. Diaz who agreed to start patient on 20 mg of Lasix and have him follow-up in the office as long as the patient was not hypoxic. Patient's vital signs are stable at this time and he has had no hypoxia while in the ER. No hypoxia with exertion was noted. Patient advised to wear compression stockings and elevate extremities to help with lower extremity edema. I discussed with patient all findings and diagnostic testing as well as the need to follow-up with PCP for further evaluation and treatment or return to the ER if any new or worsening symptoms. Strict return precautions were also discussed at length. Patient voiced understanding and agreement with the plan. Patient is hemodynamically stable at the time of disposition. (LIYAH TIJERINA APRN) Course & Med Decision Making I was the Attending physician on the above date of service of this patient. This patient was evaluated, examined, treated, and dispositioned from the emergency department by the mid-level practitioner. I discussed need to contact primary care physician who also serves as hospitalist to review case. I agree to dispo and plan of care as stated Electronically signed, Salvatore Neri DO (SALVATORE NERI DO) Kavya Disclaimer: Kavya Disclaimer: This electronic medical record was generated, in whole or in part, using a voice recognition dictation system. (LIYAH TIJERINA APRN) Departure Departure: Impression: Primary Impression: Lower extremity edema Disposition: HOME / SELF CARE / HOMELESS Condition: GOOD Referrals: MARLA BENZ MD (PCP) Patient Instructions: Edema Additional Instructions: You were seen in the ER for increased lower extremity swelling and shortness of breath. Your vital signs were stable in the ER. Your work-up in the ER was unremarkable. You will be started on a diuretic called Lasix to take daily. This will cause you to excrete excess fluid retention in your urine. To help with your lower extremity edema you can wear compression stockings and elevate your extremities. While in the ER, you were also tested for COVID-19. You will be notified of those results when they become available in approximately 2 days. Please self isolate until you receive these results. I spoke to Dr. Diaz and he would like to see you in his office this week. Please call [phone] when you are discharged from the ER to set up a follow-up appointment with him. If you develop chest pain, shortness of breath, lightheadedness, high fevers refractory to treatment please return to the ER. EMERGENCY DEPARTMENT GENERAL DISCHARGE INSTRUCTIONS Thank you for coming to [facility] (ED) today and trusting us with you care. We trust that you had a positivie experience in our Emergency Department. If you wish to speak to the department management, you may call the director at [phone]. YOUR FOLLOW UP INSTRUCTIONS ARE FOLLOWS: 1. Do you have a private Doctor? If you do not have a private doctor, please ask for a resource list of physicians or clinics that may be able to assist you with f ollow up care. 2. The Emergency Physician has interpreted your x-rays. The X-Ray specialist will also review them. If there is a change in the findings, you will be notified in 48 hours when at all possible. 3. A lab test or culture has been done, your results will be reviewed and you will be notified if you need a change in treatment. ADDITIONAL INSTRUCTIONS AND INFORMATION: 1. Your care today has been supervised by a physician who is specially trained in emergency care. Many problems require more than one evaluation for a complete diagnosis and treatment. We recommend that you schedule your follow up appointment as recommended to ensure complete treatment of you illness or injury. If you are unable to obtain follow up care and continue to have a problem, or if your condition worsens, we recommend that you return to the ED. 2. We are not able to safely determine your condition over the phone nor are we able to give sound medical advice over the phone. For these safety reasons, if you call for medical advice we will ask you to come to the ED for further evaluation. 3. If you have any questions regarding these discharge instructions please call the ED at [phone]. SAFETY INFORMATION: In the interest of safety, wellness, and injury prevention; we encourage you to wear your sealbelt, if you smoke; quite smoking, and we encourage family to use a protect christy helmet for bicycling and other sporting events that present an increased risk for head injury. IF YOUR SYMPTOMS WORSEN OR NEW SYMPTOMS DEVELOP, OR YOU HAVE CONCERNS ABOUT YOUR CONDITION; OR IF YOUR CONDITION WORSENS WHILE YOU ARE WAITING FOR YOUR FOLLOW UP APPOINTMENT; EITHER CONTACT YOUR PRIMARY CARE DOCTOR, THE PHYSICIAN WHOSE NAME AND NUMBER YOU WERE GIVEN, OR RETURN TO THE ED IMMEDIATELY. Scripts Furosemide (LASIX) 20 Mg Tablet 1 TAB PO DAILY for lower extremity edema for 14 Days, #14 TAB 0 Refills Prov: LIYAH TIJERINA APRN 05/22/21 LIYAH TIJERINA APRN May 22, 2021 14:09 SALVATORE NERI DO May 23, 2021 06:21
[2021-05-22 14:35] LABS: BASO # 0.1 x10^3/uL (0.0-0.2); BASO % 1 % (0-3); EOS # 0.4 x10^3/uL (0.0-0.7); EOS % 3 % (0-3); HEMATOCRIT 43.5 % (39.0-53.0); HEMOGLOBIN 14.5 g/dL (13.0-17.5); LYMPH # 0.5 x10^3/uL (1.0-4.8); LYMPH % 4 % (24-48); MEAN CORPUSCULAR HEMOGLOBIN 33 pg (25-35); MEAN CORPUSCULAR HGB CONC 33 g/dL (31-37); MEAN CORPUSCULAR VOLUME 99 fL (79-100); MONO % 9 % (0-9); NEUT # 9.9 x10^3uL (1.8-7.7); NEUT % 83 % (31-73); PLATELET COUNT 164 x10^3/uL (140-400); RED BLOOD COUNT 4.41 x10^6/uL (4.30-5.70); RED CELL DISTRIBUTION WIDTH 14.2 % (11.5-14.5); WHITE BLOOD COUNT 11.9 x10^3/uL (4.0-11.0)
[2021-05-22 14:43] LABS: CALCIUM 8.1 mg/dL (8.5-10.1); CREATININE 0.9 mg/dL (0.7-1.3); GFR 81.2; POTASSIUM 3.9 mmol/L (3.5-5.1)
--- NOTE | 2021-05-22 14:46 | RAD ---
XR CHEST 1V CLINICAL INDICATIONS: Shortness of air COMPARISON: September 18, 2020. Findings: No acute lung infiltrate or pleural effusion or pulmonary edema or lung mass or pneumothora x is seen. The heart size, pulmonary vasculature, mediastinum and both piotr are unremarkable. IMPRESSION: No acute radiographic abnormality is seen. Electronically signed by: Parth Cordova MD (05/22/2021 2:44 PM) [id number]
[2021-05-22 14:50] LABS: ALBUMIN 3.8 g/dL (3.4-5.0); ALBUMIN/GLOBULIN RATIO 1.4 (1.0-1.7); TOTAL BILIRUBIN 0.7 mg/dL (0.2-1.0); TOTAL PROTEIN 6.6 g/dL (6.4-8.2)
--- NOTE | 2021-05-22 15:05 | EKG ---
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
[2021-05-22] MEDS ORDERED: FUROSEMIDE 40 MG TABLET PO ONE (15:15)
[2021-05-22] MEDS ORDERED: FURO-69 PO (15:25)
[2021-05-22] MEDS ORDERED: FUROSEMIDE 40 MG/4 ML VIAL ONE (15:36)
[2021-05-22] MEDS: FUROSEMIDE 40 MG/4 ML VIAL IVP ONE (15:42)
[2021-05-22 16:35] VITALS: BP 165/82
== END 2021-05-22 16:55 | disposition home or self-care (01) ==
LOC: ER 13:49
DX: R60.0 Localized edema (principal); R06.02 Shortness of breath; M19.90 Unspecified osteoarthritis, unspecified site; I50.9 Heart failure, unspecified; F03.90 Unspecified dementia, unspecified severity, without behavioral disturbance, psychotic disturbance, mood disturbance, and anxiety; K21.9 Gastro-esophageal reflux disease without esophagitis; E78.00 Pure hypercholesterolemia, unspecified; Z90.89 Acquired absence of other organs; Z20.822 Contact with and (suspected) exposure to COVID-19
CPT/HCPCS: 36415; 71045; 80053; 83605; 83880; 84484; 85025; 87040; 87426; 93005; 96374; 99285; C9803; J1940; U0003

== ENCOUNTER 2021-05-23 05:39 | Emergency (ER) | payer MEDICARE ==
[~2021-05-23] VITALS: Ht 177.8 cm; Wt 116.6 kg
[~2021-05-23 05:39] MED LIST: FURO-69 PO
[2021-05-23 05:55] VITALS: BP 138/70
--- NOTE | 2021-05-23 06:15 | PHYS DOC ---
Past History Past Medical History: Arthritis, CHF, Dementia, GERD, High Cholesterol Past Surgical History: Appendectomy Alcohol Use: None Adult General Chief Complaint Chief Complaint: ABDOMINAL PAIN HPI HPI Patient is a 80-year-old male presenting with his for suprapubic pain. He was seen yesterday at our facility for constellation of complaints such as generalized abdominal pain and lower extremity swelling, had an extensive work- up that was grossly unremarkable and subsequently discharged home with new prescription for 20 mg Lasix daily. He has not been able to follow-up with his primary care physician. Reports he has been taking all medications as prescribed and reports he was worried because he has had issues with urinary hesitancy and inability to completely empty his bladder. Denies any dysuria but admits occasional suprapubic cramping. Denies any discharge, testicular pain, other concerning findings such as fever, chest pain, tearing or ripping sensation in the torso, shortness of breath. is worried about a potential UTI and wants him checked for this today Review of Systems Review of Systems Fourteen body systems of review of systems have been reviewed. See HPI for pertinent positives and negative responses, other gonzalez all other systems are negative, non-pertinent or non-contributory Allergies Allergies Allergies Coded Allergies Type Severity Reaction Last Updated Verified No Known Drug Allergies 05/23/21 No Physical Exam Physical Exam Constitutional: Well developed, well nourished, no acute distress, non-toxic appearance. HENT: Normocephalic, atraumatic, bilateral external ears normal, oropharynx moist, no oral exudates, nose normal. Eyes: PERRLA, EOMI, conjunctiva normal, no discharge. Neck: Normal range of motion, no tenderness, supple, no stridor. Cardiovascular: Heart rate regular, sinus rhythm, no murmurs rubs or gallops Lungs & Thorax: Bilateral breath sounds clear to auscultation Abdomen: Bowel sounds normal, soft, suprapubic tenderness to palpation without guarding or rebound, no masses, no pulsatile masses. Nonsurgical abdomen, no peritoneal signs Skin: Warm, dry, no erythema, no rash. Back: No tenderness, no CVA tenderness. Extremities: No tenderness, no cyanosis, no clubbing, ROM intact, no edema. Neurologic: Alert and oriented X 3, grossly normal motor & sensory function, no focal deficits noted. Psychologic: Affect normal, judgement normal, mood normal. Current Patient Data Vital Signs Vital Signs Date Time Temp Pulse Resp B/P (MAP) Pulse Ox O2 Delivery O2 Flow Rate FiO2 05/23/21 05:55 97.9 91 26 138/70 (92) 93 Room Air Lab Results Laboratory Tests Test 05/23/21 06:30 Urine Collection Type Unknown Urine Color Yellow Urine Clarity Clear Urine pH 6.0 Urine Specific Gordon 1.020 Urine Protein Neg Urine Glucose (UA) Neg mg/dL Urine Ketones (Stick) 15 mg/dL Urine Blood Neg Urine Nitrite Neg Urine Bilirubin Neg Urine Urobilinogen Dipstick 0.2 mg/dL Urine Leukocyte Esterase Neg Urine RBC 3-5 /HPF Urine WBC Occ /HPF Urine Squamous Epithelial Cells Many /LPF Urine Transitional Epithelial Cells Occ /LPF Urine Bacteria 0 /HPF Urine Mucus Slight /LPF EKG EKG [] Radiology/Procedures Radiology/Procedures [] Heart Score C/O Chest Pain: No Risk Factors: Risk Factors: DM, Current or recent (<one month) smoker, HTN, HLP, family history of CAD, obesity. Risk Scores: Risk Factors: DM, Current or recent (<one month) smoker, HTN, HLP, family history of CAD, obesity. Course & Med Decision Making Course & Med Decision Making ABCs unremarkable. I disclosed entirety of ER findings and discussed most likely diagnosis of likely benign abdominal pain that is self-limiting in nature. Other diagnoses were discussed with patient such as urinary tract infection, intra-abdominal abnormalities and other potentially emergent diagnoses but all deemed less likely causes of patient's presentation. Extensive ER visit yesterday was reviewed, joint decision among all to defer any further work-up today beyond a urinalysis that was ultimately negative for any acute infection. Patient has good access to outpatient primary care physician, joint decision among myself, patient and to defer any further diagnostic work-up in ER setting in favor of close outpatient follow-up. Plan of care discussed at length with need for close outpatient follow-up to review today's ER visit st ressed. Strict return precautions were also discussed at length with good understanding verbalized by patient and . Patient and voiced understanding and agreement with the plan. Patient and knows to come back for repeat evaluation if concerning signs or symptoms present prior to outpatient follow-up. Hemodynamically stable, ambulatory and well-appearing at time of disposition. Dragon Disclaimer Dragon Disclaimer This electronic medical record was generated, in whole or in part, using a voice recognition dictation system. Departure Departure: Impression: Primary Impression: Suprapubic discomfort Disposition: HOME / SELF CARE / HOMELESS Condition: STABLE Referrals: MARLA BENZ MD (PCP) Additional Instructions: You have been evaluated in the Emergency Department today for suprapubic discomfort. Your evaluation was not suggestive of any emergent condition requiring medical intervention at this time. However, some abdominal problems make take more time to appear. Therefore, it is important for you to watch for any new symptoms or worsening of your current condition. As disclosed, it is important you contact your primary care physician and review ER visit today. There is no indication for further diagnostic work-up especially in the setting of recent work-up 12 hours ago at our ER Return to the Emergency Department if you experience worsening pain, persistent fevers greater than 100.4, recurrent vomiting, blood in vomit, blood in stool, dark tarry stool, chest pain, difficulty breathing, or any other concerning symptoms. SALVATORE NERI DO May 23, 2021 06:15
[2021-05-23 06:56] LABS: BILIRUBIN,URINE NEG (NEG); CLARITY,URINE CLEAR; COLOR,URINE YELLOW; GLUCOSE,URINE NEG (NEG); NITRITE,URINE NEG (NEG); UROBILINOGEN,URINE 0.2 mg/dL (0.2 mg/dL)
[2021-05-23 07:07] LABS: BACTERIA,URINE 0 /HPF (0-FEW); SQUAMOUS EPITHELIAL CELL,UR MANY /LPF; WBC,URINE OCC /HPF (0-4)
== END 2021-05-23 07:32 | disposition home or self-care (01) ==
LOC: ER 05:39
DX: R10.30 Lower abdominal pain, unspecified (principal); M19.90 Unspecified osteoarthritis, unspecified site; F03.90 Unspecified dementia, unspecified severity, without behavioral disturbance, psychotic disturbance, mood disturbance, and anxiety; I50.9 Heart failure, unspecified; K21.9 Gastro-esophageal reflux disease without esophagitis; E78.00 Pure hypercholesterolemia, unspecified; Z90.89 Acquired absence of other organs
CPT/HCPCS: 81001; 99283

== ENCOUNTER 2021-05-23 17:02 | Emergency (ER) | payer MEDICARE ==
[~2021-05-23] VITALS: Ht 177.8 cm; Wt 116.6 kg
[2021-05-23] MEDS: IOHEXOL 300 MG/ML 75 ML VIAL. IV ONE (17:45)
--- NOTE | 2021-05-23 17:45 | PHYS DOC ---
Past History Past Medical History: Arthritis, CHF, Dementia, GERD, High Cholesterol (SALVATORE NERI DO) Past Surgical History: Appendectomy (SALVATORE NERI DO) Alcohol Use: None (SALVATORE NERI DO) Adult General HPI HPI Patient is a 80-year-old male presenting for abdominal pain. This is his third visit in 24 hours and was seen earlier today by myself for evaluation. He had full work-up yesterday for lower extremity swelling. This morning, he is complaining of suprapubic tenderness and urinary hesitancy. He has had comprehensive ER work-up that has included labs, CT chest and UA that have all been negative. He has been hemodynamically stable, ambulatory and well- appearing, nontoxic. Reports he was discharged earlier this morning with close outpatient follow-up with primary care provider advised. States he was going about his day and has been passing gas and had x1 bowel movement which was normal for him. He reports this did not help his pain. States that generalized abdominal pain has been ongoing, he has not taken anything in attempt to alleviate this. He denies any history of intra-abdominal abnormalities or surgeries. Findings were discussed with a distant relative who cited that patient has had history of gallstones in the past prompting patient and to come in for repeat evaluation. On arrival, patient continuing complain of generalized abdominal pain. Remaining history was somewhat limited due to underlying dementia which is at baseline per (SALVATORE NERI DO) Review of Systems Review of Systems Fourteen body systems of review of systems have been reviewed. See HPI for pertinent positives and negative responses, other gonzalez all other systems are negative, non-pertinent or non-contributory (SALVATORE NERI DO) Allergies Allergies Allergies Coded Allergies Type Severity Reaction Last Updated Verified No Known Drug Allergies 05/23/21 No (SALVATORE NERI DO) Physical Exam Physical Exam Constitutional: Well developed, well nourished, no acute distress, non-toxic appearance. HENT: Normocephalic, atraumatic, bilateral external ears normal, oropharynx moist, no oral exudates, nose normal. Eyes: PERRLA, EOMI, conjunctiva normal, no discharge. Neck: Normal range of motion, no tenderness, supple, no stridor. Cardiovascular: Heart rate regular, sinus rhythm, no murmurs rubs or gallops Lungs & Thorax: Bilateral breath sounds clear to auscultation Abdomen: Bowel sounds normal, soft and mildly distended, generalized tenderness with guarding present, no rebound, no masses, no pulsatile masses. Nonsurgical abdomen, no peritoneal signs Skin: Warm, dry, no erythema, no rash. Back: No tenderness, no CVA tenderness. Extremities: No tenderness, no cyanosis, no clubbing, ROM intact, no edema. Neurologic: Alert and oriented X 3, grossly normal motor & sensory function, no focal deficits noted. Psychologic: Anxious affect and mood (SALVATORE NERI DO) Current Patient Data Vital Signs Vital Signs Date Time Temp Pulse Resp B/P (MAP) Pulse Ox O2 Delivery O2 Flow Rate FiO2 05/23/21 17:42 98.3 96 18 151/88 (109) 95 05/23/21 19:54 Room Air Vital Signs Date Time Temp Pulse Resp B/P (MAP) Pulse Ox O2 Delivery O2 Flow Rate FiO2 05/23/21 21:25 88 14 134/66 (88) 94 Room Air 05/23/21 17:42 98.3 (SALVATORE NERI DO) EKG EKG EKG ordered and interpreted by myself at 1748 hrs. is sinus rhythm at 89 bpm, unremarkable intervals, no axis deviation, no acute ischemic findings, no STEMI (SALVATORE NERI DO) Radiology/Procedures Radiology/Procedures [] (SALVATORE NERI DO) Impressions: Examination: CT of the abdomen pelvis with IV contrast HISTORY: History of generalized abdominal pain COMPARISON: None available Technique: Axial CT images of the abdomen pelvis were performed with IV contrast. Coronal and sagittal reformats are performed. Exposure: One or more of the following individualized dose reduction techniques were utilized for this examination: 1. Automated exposure control 2. Adjustment of the mA and/or kV according to patient size 3. Use of iterative reconstruction technique. FINDINGS: The bibasilar lungs are clear. No evidence of free air identified in the abdomen. Mild degree attenuation noted in the liver likely hepatic steatosis. Calcified granulomas identified in the spleen. Cholecystectomy changes. The stomach is mildly distended. The visualized pancreas grossly appears unremarkable Multiple dilated small bowel loops identified in the mid abdomen with transition point in the mid abdomen best visualized on series 2 image 58. The distal small bowel loops are collapsed. Feces and gas noted in the colon. Two urinary bladder diverticulum identified posterior lateral urinary bladder. Small cystic structure identified in the right kidney measuring 8 mm and a 1.6 cm cystic structure identified in the left kidney measuring 56 Hounsfield units could be hyperdense cysts or cystic lesions.Mild aortic atherosclerosis. Moderate degenerative changes thoracolumbar spine. IMPRESSION: 1. Multiple dilated small bowel loops identified in the mid abdomen with transition point in the mid abdomen. The distal small bowel loops are collapsed. Findings are consistent with small bowel obstruction. 2. Small cystic structure identified in the right kidney measuring 8 mm and a 1.6 cm cystic structure identified in the left kidney measuring 56 Hounsfield units could be hyperdense cysts or cystic lesions. Follow-up nonemergent ultrasound kidneys can be considered. 3. Urinary bladder diverticula. Electronically signed by: Jude Mustafa MD (05/23/2021 6:37 PM) [id number] DICTATED AND SIGNED BY: JUDE MUSTAFA MD DATE: 05/23/211824 CC: EVIE CARLSON DO; MARLA BENZ MD; SALVATORE NERI DO ~MTH0 0 (EVIE CARLSON DO) Heart Score C/O Chest Pain: No HEART Score for Chest Pain: HEART Score for Chest Pain Response (Comments) Value History Slighlty/Non-Suspicious 0 ECG Normal 0 Age > 65 2 Risk Factors >3 Risk Factors or Hx CAD 2 Total 4 Risk Factors: Risk Factors: DM, Current or recent (<one month) smoker, HTN, HLP, family history of CAD, obesity. Risk Scores: Risk Factors: DM, Current or recent (<one month) smoker, HTN, HLP, family history of CAD, obesity. (SALVATORE NERI DO) Course & Med Decision Making Course & Med Decision Making ABCs unremarkable. HPI, physical exam and comprehensive ER work-up started. EKG nonconcerning. Remaining ER work-up started at time of my shift and. Comprehensive signout given to oncoming physician. Please defer to Dr. Carlson's documentation for future ER care of patient (SALVATORE NERI DO) Course & Med Decision Making The patient CT scan of the abdomen and pelvis shows small bowel obstruction. We will consult general surgery. The patient's labs are essentially unremarkable. I spoke with the general surgeon, Dr. Pritchard and he has recommended an NG tube and transfer the patient to [facility]. The patient is in a greement with this plan. I spoke with Dr. Lion, the hospitalist and he has accepted the patient for admission and transfer. The patient will go by ambulance. (EVIE CARLSON DO) Dragon Disclaimer Dragon Disclaimer This electronic medical record was generated, in whole or in part, using a voice recognition dictation system. (SALVATORE NERI DO) Departure Departure: Impression: Primary Impression: Small bowel obstruction Disposition: 02 SHORT TERM HOSPITAL Condition: STABLE Referrals: MARLA BENZ MD (PCP) SALVATORE NERI DO May 23, 2021 17:45 EVIE CARLSON DO May 23, 2021 18:56
--- NOTE | 2021-05-23 18:09 | EKG ---
[address] [address] Test Date: 2021-05-23 Test Time: 17:40:34 Pat Name: GARRET CAMP Department: Room: Gender: M Flight Operations Coordinator: JUAN LUIS : 1940 Requested By: SALVATORE NERI Order Number: [id number] Reading MD: Measurements Intervals [place] Rate: 89 P: 31 IA: 144 QRS: 5 QRSD: 90 T: 25 QT: 354 QTc: 437 Interpretive Statements SINUS RHYTHM NORMAL ECG RI6.02 No previous ECG available for comparison
[2021-05-23 18:27] LABS: BASO % 0 % (0-3); EOS # 0.2 x10^3/uL (0.0-0.7); EOS % 2 % (0-3); HEMATOCRIT 45.4 % (39.0-53.0); HEMOGLOBIN 15.1 g/dL (13.0-17.5); LYMPH # 0.8 x10^3/uL (1.0-4.8); LYMPH % 7 % (24-48); MEAN CORPUSCULAR HEMOGLOBIN 33 pg (25-35); MEAN CORPUSCULAR HGB CONC 33 g/dL (31-37); MEAN CORPUSCULAR VOLUME 98 fL (79-100); MONO # 1.7 x10^3/uL (0.0-1.1); MONO % 15 % (0-9); NEUT # 8.5 x10^3uL (1.8-7.7); NEUT % 76 % (31-73); PLATELET COUNT 158 x10^3/uL (140-400); RED BLOOD COUNT 4.65 x10^6/uL (4.30-5.70); RED CELL DISTRIBUTION WIDTH 13.9 % (11.5-14.5); WHITE BLOOD COUNT 11.2 x10^3/uL (4.0-11.0)
[2021-05-23 18:33] LABS: CALCIUM 8.6 mg/dL (8.5-10.1); GFR 71.9; POTASSIUM 3.4 mmol/L (3.5-5.1)
--- NOTE | 2021-05-23 18:39 | RAD ---
Examination: CT of the abdomen pelvis with IV contrast HISTORY: History of generalized abdominal pain COMPARISON: None available Technique: Axial CT images of the abdomen pelvis were performed with IV contrast. Coronal and sagitt al reformats are performed. Exposure: One or more of the following individualized dose reduction techniques were utilized for thi s examination: 1. Automated exposure control 2. Adjustment of the mA and/or kV according to patient size 3. Use of iterative reconstruction technique. FINDINGS: The bibasilar lungs are clear. No evidence of free air identified in the abdomen. Mild degree attenua tion noted in the liver likely hepatic steatosis. Calcified granulomas identified in the spleen. Chol ecystectomy changes. The stomach is mildly distended. The visualized pancreas grossly appears unremar kable Multiple dilated small bowel loops identified in the mid abdomen with transition point in the mid abd omen best visualized on series 2 image 58. The distal small bowel loops are collapsed. Feces and gas noted in the colon. Two urinary bladder diverticulum identified posterior lateral urinary bladder. Sm all cystic structure identified in the right kidney measuring 8 mm and a 1.6 cm cystic structure iden tified in the left kidney measuring 56 Hounsfield units could be hyperdense cysts or cystic lesions.M ild aortic atherosclerosis. Moderate degenerative changes thoracolumbar spine. IMPRESSION: 1. Multiple dilated small bowel loops identified in the mid abdomen with transition point in the mid abdomen. The distal small bowel loops are collapsed. Findings are consistent with small bowel obstru ction. 2. Small cystic structure identified in the right kidney measuring 8 mm and a 1.6 cm cystic structur e identified in the left kidney measuring 56 Hounsfield units could be hyperdense cysts or cystic les ions. Follow-up nonemergent ultrasound kidneys can be considered. 3. Urinary bladder diverticula. Electronically signed by: Jude Mustafa MD (05/23/2021 6:37 PM) [id number]
[2021-05-23] MEDS: LIDOCAINE 2% VISCOUS 15 ML SOLUTION. SWSW ONE (20:53)
[2021-05-23] MEDS ORDERED: ONDANSETRON PF 4 MG/2 ML VIAL. ONE (21:01)
[2021-05-23] MEDS: ONDANSETRON PF 4 MG/2 ML VIAL. IVP ONE (21:04)
[2021-05-23 21:25] VITALS: BP 134/66
== END 2021-05-23 21:49 | disposition short-term general hospital (02) ==
LOC: ER 17:02
DX: K56.609 Unspecified intestinal obstruction, unspecified as to partial versus complete obstruction (principal); M19.90 Unspecified osteoarthritis, unspecified site; I50.9 Heart failure, unspecified; F03.90 Unspecified dementia, unspecified severity, without behavioral disturbance, psychotic disturbance, mood disturbance, and anxiety; K21.9 Gastro-esophageal reflux disease without esophagitis; E78.00 Pure hypercholesterolemia, unspecified; Z20.822 Contact with and (suspected) exposure to COVID-19; Z90.89 Acquired absence of other organs
CPT/HCPCS: 36415; 74177; 80048; 83605; 85025; 87426; 93005; 96374; 96375; 99285; C9803; J2405; J3010; Q9967; U0003

== ENCOUNTER 2021-07-16 19:55 | Emergency (ER) | payer MEDICARE ==
[~2021-07-16] VITALS: Ht 177.8 cm; Wt 116.6 kg
--- NOTE | 2021-07-16 20:03 | PHYS DOC ---
Past History Past Medical History: Arthritis, CHF, Dementia, GERD, High Cholesterol Past Surgical History: Appendectomy Alcohol Use: None Adult General Chief Complaint Chief Complaint: URINARY RETENTION HPI HPI Patient is a 80-year-old male, who presents with a chief complaint of urinary frequency and urgency for the last 2 days. States that this morning he thought he had some specks of blood in his urine so he went to see his primary care physician who gave him some antibiotics to treat for UTI but never tested his urine. States he would like to have his urine test to make sure he was on appropriate antibiotics. States he had started his prescription yet. Denies any recent traumas, travels, illnesses, fevers, chest pain, shortness of breath, abdominal pain, dysuria, diarrhea or blood in the stool. States he is eating and drinking normally for him. States he is otherwise making urine and stool normally for him. States he has never had this happen before. Review of Systems Review of Systems Review of systems otherwise unremarkable except noted in HPI Allergies Allergies Allergies Coded Allergies Type Severity Reaction Last Updated Verified No Known Drug Allergies 05/23/21 No Physical Exam Physical Exam Constitutional: Well developed, well nourished, no acute distress, non-toxic appearance. [] HENT: Normocephalic, atraumatic, bilateral external ears normal, oropharynx moist, no oral exudates, nose normal. [] Eyes: conjunctiva normal, no discharge. [] Neck: Normal range of motion, no tenderness, supple, no stridor. [] Cardiovascular:Heart rate regular rhythm, no murmur [] Lungs & Thorax: Bilateral breath sounds clear to auscultation [] Abdomen: soft, no tenderness, no masses, no pulsatile masses. [] Skin: Warm, dry, no erythema, no rash. [] Back: no CVA tenderness. [] Extremities: No tenderness, no cyanosis, no clubbing, ROM intact, no edema. [] Neurologic: Alert and oriented X 3, no focal deficits noted. [] Psychologic: Affect normal, judgement normal, mood normal. [] EKG EKG [] Radiology/Procedures Radiology/Procedures [] Heart Score C/O Chest Pain: No Risk Factors: Risk Factors: DM, Current or recent (<one month) smoker, HTN, HLP, family history of CAD, obesity. Risk Scores: Risk Factors: DM, Current or recent (<one month) smoker, HTN, HLP, family history of CAD, obesity. Course & Med Decision Making Course & Med Decision Making Patient is a 80-year-old male presents with a chief complaint of urinary frequency and urgency Vital signs initially notable for sinus tachycardia which resolved in the ED. Physical exam noted above. Urinalysis notable for urinary tract infection. Since patient did not cook pickled meat his antibiotic stable he was given his first dose of Keflex in the ED. Advised to fill his prescription in the morning and begin his antibiotics as prescribed by his primary care physician. Advised to call primary care physician in the morning to update on ED visit. Gave return precautions to the ED. Patient grateful, verbalized understanding and agreed with plan of discharge. [] Dragon Disclaimer Dragon Disclaimer This electronic medical record was generated, in whole or in part, using a voice recognition dictation system. Departure Departure: Impression: Primary Impression: Urinary frequency Additional Impressions: Urinary urgency Urinary tract infection Disposition: HOME / SELF CARE / HOMELESS Condition: GOOD Referrals: MARLA BENZ MD (PCP) Additional Instructions: Thank you for coming into the emergency department tonight and allowing us to take care of you. Please read the attached information carefully go back over some of the things we discussed. Please be sure to fill your prescription for antibiotics as given to you by your primary care physician and start taking them immediately in the morning as prescribed. Please call your primary care physician first thing the morning to update them on your ED visit and things we discussed and set up a follow-up as soon as you can for reevaluation. Please come back with new or concerning symptoms as we discussed. Problem Qualifiers DARELL COTA MD Jul 16, 2021 20:03
[2021-07-16 21:22] LABS: BILIRUBIN,URINE NEG (NEG); CLARITY,URINE CLOUDY; COLOR,URINE AMBER; GLUCOSE,URINE NEG (NEG); NITRITE,URINE NEG (NEG)
[2021-07-16 21:23] LABS: BACTERIA,URINE MANY /HPF (0-FEW); SQUAMOUS EPITHELIAL CELL,UR OCC /LPF; WBC,URINE 20-40 /HPF (0-4)
[2021-07-16] MEDS ORDERED: CEPHALEXIN 250 MG CAPSULE PO ONE (21:45)
[2021-07-16 21:50] VITALS: BP 140/76
== END 2021-07-16 21:52 | disposition home or self-care (01) ==
LOC: ER 19:55
DX: N39.0 Urinary tract infection, site not specified (principal); M19.90 Unspecified osteoarthritis, unspecified site; I50.9 Heart failure, unspecified; F03.90 Unspecified dementia, unspecified severity, without behavioral disturbance, psychotic disturbance, mood disturbance, and anxiety; K21.9 Gastro-esophageal reflux disease without esophagitis; E78.00 Pure hypercholesterolemia, unspecified; Z90.89 Acquired absence of other organs
CPT/HCPCS: 81001; 87086; 99283

== ENCOUNTER 2021-11-07 23:05 | Emergency (ER) | payer MEDICARE ==
[~2021-11-07] VITALS: Ht 179.1 cm; Wt 108.6 kg
--- NOTE | 2021-11-07 23:08 | PHYS DOC ---
Past History Past Medical History: Arthritis, CHF, Dementia, GERD, High Cholesterol Past Surgical History: Appendectomy, Tonsillectomy Alcohol Use: None Adult General HPI HPI Patient is an 80-year-old male with a past medical history of CAD and CHF as well as dementia who presents with a chief complaint of chest pain, that has been going on intermittently over the last couple of months is kind of centralized, 5 out of 10 at its worst can identify any aggravating or alleviating factors. Denies any dyspnea on exertion, orthopnea, PND or edema. Denies recent travel, traumas, illnesses, fevers, abdominal pain, nausea, vomiting, dysuria, hematuria or blood in the stool. States he has seen his primary care physician about this and has had some medication management. States he is eating and drinking normally for him. States he is eating and urine and stool normally for him. Review of Systems Review of Systems Review of systems otherwise unremarkable except noted in HPI Allergies Allergies Allergies Coded Allergies Type Severity Reaction Last Updated Verified No Known Drug Allergies 05/23/21 No Physical Exam Physical Exam Constitutional: Well developed, well nourished, no acute distress, non-toxic appearance. [] HENT: Normocephalic, atraumatic, oropharynx moist, no oral exudates, nose normal. [] Eyes: conjunctiva normal, no discharge. [] Neck: Normal range of motion, no tenderness, supple, no stridor. [] Cardiovascular:Heart rate regular rhythm, no murmur, EKG with a rate of 81, QRS 92, QTc 419, no STEMI [] Lungs & Thorax: Bilateral breath sounds clear to auscultation [] Abdomen: soft, no tenderness, no masses, no pulsatile masses. [] Skin: Warm, dry, no erythema, no rash. [] Back: no CVA tenderness. [] Extremities: No tenderness, no cyanosis, no clubbing, ROM intact, no edema. [] Neurologic: Alert and oriented X 3, normal motor function, normal sensory function, no focal deficits noted. [] Psychologic: Affect normal, judgement normal, mood normal. [] EKG EKG [] Radiology/Procedures Radiology/Procedures [] Heart Score C/O Chest Pain: Yes HEART Score for Chest Pain: HEART Score for Chest Pain Response (Comments) Value History Slighlty/Non-Suspicious 0 ECG Normal 0 Age > 65 2 Risk Factors 1 or 2 Risk Factors 1 Total 3 Risk Factors: Risk Factors: DM, Current or recent (<one month) smoker, HTN, HLP, family history of CAD, obesity. Risk Scores: Risk Factors: DM, Current or recent (<one month) smoker, HTN, HLP, family history of CAD, obesity. Course & Med Decision Making Course & Med Decision Making Patient is an 80-year-old male with multiple comorbidities who presents with chest/lung pain intermittently over the last few weeks Vital signs not concerning. Physical exam noted above. EKG noted above. Troponin normal. Put on the monitor with IV access established. Laboratory analysis not concerning. Chest x-ray nonconcerning. CT of the abdomen not concerning. Patient otherwise asymptomatic Discussed all findings with patient. Advised to follow-up in the morning with primary care physician update on his ED visit and discuss any further needs for evaluation. Gave return precautions to the ED. Patient grateful, verbalized understanding and agreed with plan of discharge. Dragon Disclaimer Dragon Disclaimer This electronic medical record was generated, in whole or in part, using a voice recognition dictation system. Departure Departure: Impression: Primary Impression: Chest pain Disposition: HOME / SELF CARE / HOMELESS Admitting Physician: Vinicius Wade Ho, Samuel Condition: STABLE Referrals: VINICIUS WADE MD (PCP) Patient Instructions: Chest Pain (Nonspecific) Additional Instructions: Thank you for coming into the emergency department tonight and allowing us to take care of you. Please read the attached information carefully to go over things we discussed. It is very important that you follow-up in the morning with your primary care physician update on your ED visit and set up an appointment for follow-up as soon as possible. Please continue to eat at least 3 nutritious meals a day, take a multivitamin and take all your medications as prescribed. Please stay well-hydrated. Please come back to the ED with new or concerning symptoms as we discussed. DARELL COTA MD Nov 07, 2021 23:08
--- NOTE | 2021-11-07 23:38 | EKG ---
[address] [address] Test Date: 2021-11-07 Test Time: 23:15:24 Pat Name: GARRET CAMP Department: Room: Gender: M Sales Rep: : 1940 Requested By: DARELL COTA Order Number: [id number] Reading MD: Tariq Wong MD Measurements Intervals [place] Rate: 81 P: 40 ID: [id number] QRS: 19 QRSD: 92 T: 40 QT: 360 QTc: 419 Interpretive Statements SINUS RHYTHM NON-SPECIFIC ST/T CHANGES Electronically Signed On 11-12-2021 11:15:44 [employer] by Tariq Wong MD
[2021-11-07 23:52] LABS: BASO # 0.1 x10^3/uL (0.0-0.2); BASO % 1 % (0-3); EOS # 0.3 x10^3/uL (0.0-0.7); EOS % 4 % (0-3); HEMATOCRIT 43.3 % (39.0-53.0); HEMOGLOBIN 14.3 g/dL (13.0-17.5); LYMPH # 1.9 x10^3/uL (1.0-4.8); LYMPH % 24 % (24-48); MEAN CORPUSCULAR HEMOGLOBIN 33 pg (25-35); MEAN CORPUSCULAR HGB CONC 33 g/dL (31-37); MEAN CORPUSCULAR VOLUME 99 fL (79-100); MONO # 1.2 x10^3/uL (0.0-1.1); MONO % 15 % (0-9); NEUT # 4.5 x10^3uL (1.8-7.7); NEUT % 56 % (31-73); PLATELET COUNT 187 x10^3/uL (140-400); RED BLOOD COUNT 4.38 x10^6/uL (4.30-5.70); RED CELL DISTRIBUTION WIDTH 14.3 % (11.5-14.5)
[2021-11-07 23:59] LABS: CALCIUM 8.8 mg/dL (8.5-10.1); CREATININE 1.1 mg/dL (0.7-1.3); GFR 64.4; POTASSIUM 3.5 mmol/L (3.5-5.1)
[2021-11-08 00:05] LABS: ALBUMIN 3.8 g/dL (3.4-5.0); ALBUMIN/GLOBULIN RATIO 1.2 (1.0-1.7); MAGNESIUM 2.3 mg/dL (1.8-2.4); TOTAL BILIRUBIN 0.5 mg/dL (0.2-1.0); TOTAL PROTEIN 6.9 g/dL (6.4-8.2)
[2021-11-08] MEDS ORDERED: ASPIRIN CHEWABLE 81 MG TABLET. PO ONE (00:30)
[2021-11-08] MEDS ORDERED: ASPIRIN CHEWABLE 81 MG TABLET. ONE (00:32)
--- NOTE | 2021-11-08 01:07 | RAD ---
EXAM: XR CHEST 1V 11/07/2021 11:13 PM CLINICAL INDICATION: Chest pain, upper abdominal pain COMPARISON: Chest radiograph 05/22/2021 TECHNIQUE: AP view of the chest FINDINGS: Cardiac silhouette is stable. The lungs are adequately expanded. No consolidation, pleural effusion, or pneumothorax. Bilateral acromioclavicular degenerative joint disease. IMPRESSION: No acute cardiopulmonary abnormality. Electronically signed by: Kerri Fernando MD (11/08/2021 1:04 AM) [facility]
--- NOTE | 2021-11-08 01:21 | RAD ---
Exam: CT abdomen without intravenous contrast Indication: Epigastric pain Comparison: CT abdomen pelvis 05/23/2021 Technique: Helical CT imaging performed of the abdomen without the use of intravenous contrast. Sagit kobi and coronal reformats were obtained. One or more of the following individualized dose reduction techniques were utilized for this examinat ion: 1. Automated exposure control 2. Adjustment of the mA and/or kV according to patient size 3. Use of iterative reconstruction technique. Findings: Inherently limited evaluation without intravenous contrast. Lower chest: Mild interstitial changes in the lung bases. Heart is normal in size. There are calcifie d mediastinal and hilar lymph nodes. Liver: Normal. Gallbladder/Biliary Tree: Cholecystectomy. Bile ducts are normal Pancreas: Normal Spleen: No symmetrically. There are calcified splenic granulomas Adrenal Glands: Normal. Kidneys: Kidneys are normal in size. There are small calculi in the left kidney. No hydronephrosis. T here is a 1 cm exophytic left renal lesion with greater than fluid density, indeterminate. Stomach and the visualized portion of the bowel: The stomach is normal. Visualized portion of the bow el is unremarkable. There is no small bowel obstruction. Vasculature: Abdominal aorta is normal in caliber. Mild calcified atherosclerosis. Lymph Nodes: No lymphadenopathy. Peritoneum and retroperitoneum: No free fluid or free air. Bones: No acute osseous abnormality. There is 4 mm anterolisthesis of L4-L5 and 2 mm anterolisthesis of L5 on S1. Mild degenerative disc disease at L4-L5. Miscellaneous: None IMPRESSION: 1. No acute abnormality in the abdomen. 2. Left nephrolithiasis. 3. Unchanged 1 cm indeterminate left renal cyst with greater than fluid density. This could be furth er evaluated with ultrasound or CT or MRI with renal mass protocol to exclude a mass. Electronically signed by: Kerri Fernando MD (11/08/2021 1:19 AM) [facility]
[2021-11-08 01:40] VITALS: BP 132/64
== END 2021-11-08 01:45 | disposition home or self-care (01) ==
LOC: ER 23:05
DX: R07.89 Other chest pain (principal); M19.90 Unspecified osteoarthritis, unspecified site; I50.9 Heart failure, unspecified; F03.90 Unspecified dementia, unspecified severity, without behavioral disturbance, psychotic disturbance, mood disturbance, and anxiety; K21.9 Gastro-esophageal reflux disease without esophagitis; E78.00 Pure hypercholesterolemia, unspecified; I25.10 Atherosclerotic heart disease of native coronary artery without angina pectoris; Z20.822 Contact with and (suspected) exposure to COVID-19
CPT/HCPCS: 71045; 74150; 80053; 83735; 84484; 85025; 87426; 93005; 99285; C9803; U0003

== ENCOUNTER 2021-12-27 02:00 | Emergency (ER) | payer MEDICARE ==
[~2021-12-27] VITALS: Ht 177.8 cm; Wt 107.4 kg
--- NOTE | 2021-12-27 02:17 | PHYS DOC ---
Past History Past Medical History: Arthritis, CHF, Dementia, GERD, High Cholesterol Past Surgical History: Appendectomy, Tonsillectomy Alcohol Use: None Adult General Chief Complaint Chief Complaint: CHEST PAIN HPI HPI Patient is a 81-year-old male with a past medical history of CAD and CHF who presents to the emergency department with a chief complaint of chest pain. States he woke up about an hour to an hour and a half ago had some centralized sharp chest pain, 6 out of 10, that lasted for about 10 minutes and then went away. States he is currently asymptomatic. Denies any other medical complaints. Denies any recent traumas, travels, illnesses, fevers, shortness of breath, abdominal pain, nausea, vomiting, diarrhea. Denies any dysuria, hematuria, blood in the stool. Denies any numbness/weakness/tingling. Denies any trouble sitting, standing or walking. Did not take any medications. Review of Systems Review of Systems Review of systems otherwise unremarkable except noted in HPI Allergies Allergies Allergies Coded Allergies Type Severity Reaction Last Updated Verified No Known Drug Allergies 12/27/21 No Physical Exam Physical Exam Constitutional: Well developed, well nourished, no acute distress, non-toxic appearance. [] HENT: Normocephalic, atraumatic, bilateral external ears normal, oropharynx mois t, no oral exudates, nose normal. [] Eyes: conjunctiva normal, no discharge. [] Neck: Normal range of motion, no tenderness, supple, no stridor. [] Cardiovascular:Heart rate regular rhythm, no murmur [] Lungs & Thorax: Bilateral breath sounds clear to auscultation [] Abdomen: soft, no tenderness, no masses, no pulsatile masses. [] Skin: Warm, dry, no erythema, no rash. [] Back: No tenderness, no CVA tenderness. [] Extremities: No tenderness, no cyanosis, no clubbing, ROM intact, no edema. [] Neurologic: Alert and oriented X 3, normal motor function, normal sensory function, no focal deficits noted. [] Psychologic: Affect normal, judgement normal, mood normal. [] Current Patient Data Vital Signs Vital Signs Date Time Temp Pulse Resp B/P (MAP) Pulse Ox O2 Delivery O2 Flow Rate FiO2 12/27/21 02:06 97.7 76 20 143/84 (103) 97 EKG EKG [] Radiology/Procedures Radiology/Procedures [] Heart Score C/O Chest Pain: No Risk Factors: Risk Factors: DM, Current or recent (<one month) smoker, HTN, HLP, family history of CAD, obesity. Risk Scores: Risk Factors: DM, Current or recent (<one month) smoker, HTN, HLP, family hist ory of CAD, obesity. Course & Med Decision Making Course & Med Decision Making Patient 71-year-old male who presents with an episode of intermittent chest pain that is now resolved Vital signs nonconcerning. Physical exam noted above. EKG with a rate of 66, QRS of 90, QTc 413, no STEMI. Troponin not concerning Laboratory analysis notable for hypokalemia and replaced. Mild hypocalcemia. Advised on taking multivitamin at home. Chest x-ray suggestive of pneumonia and started on antibiotics Discussed symptom management at home. Advised to follow-up this morning with primary care physician to update on ED visit and set up a follow-up. Gave return precautions to the ED Patient grateful, verbalized understanding and agreed with plan of discharge. [] Dragon Disclaimer Dragon Disclaimer This electronic medical record was generated, in whole or in part, using a voice recognition dictation system. Departure Departure: Impression: Primary Impression: Chest pain Additional Impression: Pneumonia Disposition: HOME / SELF CARE / HOMELESS Condition: STABLE Referrals: MARLA BENZ MD (PCP) Patient Instructions: Chest Pain (Nonspecific), Pneumomediastinum Additional Instructions: Thank you for coming into the emergency department tonight and allowing us to take care of you. Please read the attached information carefully to go over things we discussed. Please continue take all your medications as prescribed. Please follow-up with your primary care physician this morning to update on your ED visit and set up a follow-up as soon as you can. Please come back with new or concerning symptoms as discussed. Scripts Levofloxacin (LEVOFLOXACIN) 500 Mg Tablet 1 TAB PO DAILY for PNA for 6 Days, #6 TAB Prov: DARELL COTA MD 12/27/21 Problem Qualifiers DARELL COTA MD Dec 27, 2021 02:17
[2021-12-27 02:49] LABS: BASO % 1 % (0-3); EOS # 0.3 x10^3/uL (0.0-0.7); EOS % 4 % (0-3); HEMATOCRIT 42.8 % (39.0-53.0); HEMOGLOBIN 14.3 g/dL (13.0-17.5); LYMPH # 1.1 x10^3/uL (1.0-4.8); LYMPH % 16 % (24-48); MEAN CORPUSCULAR HEMOGLOBIN 33 pg (25-35); MEAN CORPUSCULAR HGB CONC 34 g/dL (31-37); MEAN CORPUSCULAR VOLUME 99 fL (79-100); MONO # 1.3 x10^3/uL (0.0-1.1); MONO % 19 % (0-9); NEUT % 60 % (31-73); PLATELET COUNT 144 x10^3/uL (140-400); RED BLOOD COUNT 4.34 x10^6/uL (4.30-5.70); RED CELL DISTRIBUTION WIDTH 13.9 % (11.5-14.5); WHITE BLOOD COUNT 6.7 x10^3/uL (4.0-11.0)
[2021-12-27 02:56] LABS: GFR 71.7; POTASSIUM 3.4 mmol/L (3.5-5.1)
[2021-12-27] MEDS ORDERED: LEVO500T9 PO (03:15)
--- NOTE | 2021-12-27 03:15 | RAD ---
AP chest x-ray HISTORY: Chest pain. COMPARISON: Chest x-ray November 07, 2021 FINDINGS: Heart size upper limits of normal. Mediastinal silhouette is normal. No pneumothorax. Promi nent left epicardial fat pad partially obscures the diaphragm, stable. No pulmonary opacities or pleu ral effusions are evident. IMPRESSION: No acute process. Stable exam. Electronically signed by: Jameel Allred MD (12/27/2021 3:12 AM) [facility]
[2021-12-27 03:19] VITALS: BP 139/60
[2021-12-27] MEDS ORDERED: POTASSIUM CHLORIDE 20 MEQ TABLET.ER. PO ONE (03:30)
[2021-12-27] MEDS ORDERED: levoFLOXacin 500 MG TABLET PO ONE (03:30)
--- NOTE | 2021-12-27 20:21 | EKG ---
[address] [address] Test Date: 2021-12-27 Test Time: 02:13:32 Pat Name: GARRET CAMP Department: Room: Gender: M Inspector Subassembly: ALFIE : 1940 Requested By: DARELL COTA Order Number: [id number] Reading MD: Measurements Intervals [place] Rate: 66 P: 36 ID: [id number] QRS: 18 QRSD: 90 T: 32 QT: 392 QTc: 413 Interpretive Statements SINUS RHYTHM NO SPECIFIC ECG ABNORMALITIES RI6.01 No previous ECG available for comparison
== END 2021-12-27 03:27 | disposition home or self-care (01) ==
LOC: ER 02:00
DX: J18.9 Pneumonia, unspecified organism (principal); R07.89 Other chest pain; M19.90 Unspecified osteoarthritis, unspecified site; I50.9 Heart failure, unspecified; F03.90 Unspecified dementia, unspecified severity, without behavioral disturbance, psychotic disturbance, mood disturbance, and anxiety; K21.9 Gastro-esophageal reflux disease without esophagitis; E78.00 Pure hypercholesterolemia, unspecified
CPT/HCPCS: 36415; 71045; 80048; 83735; 83880; 84484; 85025; 93005; 99285

== ENCOUNTER 2022-01-05 23:29 | Emergency (ER) | payer MEDICARE ==
[~2022-01-05] VITALS: Ht 177.8 cm; Wt 106.8 kg
[~2022-01-05 23:29] MED LIST changes: +LEVO500T9 PO
--- NOTE | 2022-01-05 23:37 | PHYS DOC ---
Past History Past Medical History: Arthritis, CHF, Dementia, GERD, High Cholesterol Past Surgical History: Appendectomy, Tonsillectomy Alcohol Use: Sober Adult General HPI HPI Patient is a 81-year-old male who presents with a chief complaint of shivers. States he was in the emergency department a few days ago and diagnosed with pneumonia but only took 1 dose of his antibiotics. States he did not take them for a few days because he was out of town and started taking them again 3 days ago and has taken 3 pills. States he started having some cold shivers about 15 minutes before coming in. Denies any recent traumas, fevers, chest pain, s hortness of breath, abdominal pain, nausea, vomiting, diarrhea. Denies any numbness/weakness/tingling. States he is eating and drinking normally. States is making urine and stool normally for him. Review of Systems Review of Systems Review of systems otherwise unremarkable except noted in HPI Allergies Allergies Allergies Coded Allergies Type Severity Reaction Last Updated Verified No Known Drug Allergies 12/27/21 No Physical Exam Physical Exam Constitutional: Well developed, well nourished, no acute distress, non-toxic appearance. [] HENT: Normocephalic, atraumatic, bilateral external ears normal, oropharynx moist, no oral exudates, nose normal. [] Eyes: conjunctiva normal, no discharge. [] Neck: Normal range of motion, no tenderness, supple, no stridor. [] Cardiovascular:Heart rate regular rhythm, no murmur [] Lungs & Thorax: Mild bilateral congestion with no wheeze or no respiratory distress Abdomen: soft, no tenderness, no masses, no pulsatile masses. [] Skin: Warm, dry, no erythema, no rash. [] Back: No tenderness, no CVA tenderness. [] Extremities: No tenderness, no cyanosis, no clubbing, ROM intact, no edema. [] Neurologic: Alert and oriented X 3, normal motor function, normal sensory function, no focal deficits noted. [] Psychologic: Affect normal, judgement normal, mood normal. [] EKG EKG [] Radiology/Procedures Radiology/Procedures [] Heart Score C/O Chest Pain: No Risk Factors: Risk Factors: DM, Current or recent (<one month) smoker, HTN, HLP, family history of CAD, obesity. Risk Scores: Risk Factors: DM, Current or recent (<one month) smoker, HTN, HLP, family history of CAD, obesity. Course & Med Decision Making Course & Med Decision Making Patient is an 81-year-old male who presents emergency department with a chief complaint of having shivers and not taking his antibiotics from previous diagnosis of pneumonia Vital signs with low-grade fever. Physical exam noted above. Previous chest x- ray 10 days ago with pneumonia. Patient started on continued course of Levaquin given mild cough, low-grade fever and probable continuing pneumonia. Advised to follow-up in the morning with primary care physician. Discussed symptom management at home. Gave return precautions to the ED. Patient gra teful, verbalized understanding and agreed with plan of discharge Dragon Disclaimer Dragon Disclaimer This electronic medical record was generated, in whole or in part, using a voice recognition dictation system. Departure Departure: Impression: Primary Impression: Pneumonia Disposition: 01 HOME / SELF CARE / HOMELESS Condition: STABLE Referrals: MARLA BENZ MD (PCP) Patient Instructions: Pneumonia, Adult Additional Instructions: Thank you for coming into the emergency department tonight and allowing us to take care of you. Please read the attached information carefully to go over things we discussed. Please take your antibiotics consistently every day until they are gone. You can use Tylenol, ibuprofen as needed. Please follow-up in the morning with your primary care physician update on your ED visit. Please make with new or concerning symptoms as discussed. DARELL COTA MD Jan 05, 2022 23:37
[2022-01-06] MEDS ORDERED: LEVO500T9 PO (00:04)
[2022-01-06] MEDS ORDERED: ACETAMINOPHEN 500 MG TABLET PO ONE (00:15)
[2022-01-06] MEDS ORDERED: IBUPROFEN 400 MG TABLET. PO ONE (00:15)
[2022-01-06 01:01] VITALS: BP 128/76
--- NOTE | 2022-01-07 07:22 | RAD ---
XR CHEST 1V Clinical History: Reason: fever, cough / Spl. Instructions: / History: Technique: AP view of the chest was obtained at 01/05/2022 12:30 AM. Comparison: December 27, 2021. Findings: The cardiomediastinal silhouette is normal. The pulmonary vasculature is normal. There are linear opa cities in the lung bases. Impression: Linear opacities in the lung bases were seen previously could be discoid atelectasis or scar. Stable appearance of the chest. Electronically signed by: Hussain Youssef III, MD (01/07/2022 7:20 AM) [facility]
== END 2022-01-06 01:02 | disposition home or self-care (01) ==
LOC: ER 23:29
DX: J18.9 Pneumonia, unspecified organism (principal); M19.90 Unspecified osteoarthritis, unspecified site; I50.9 Heart failure, unspecified; F03.90 Unspecified dementia, unspecified severity, without behavioral disturbance, psychotic disturbance, mood disturbance, and anxiety; K21.9 Gastro-esophageal reflux disease without esophagitis; E78.00 Pure hypercholesterolemia, unspecified
CPT/HCPCS: 71045; 99283

== ENCOUNTER 2022-01-28 01:27 | Emergency (ER) | payer MEDICARE ==
[~2022-01-28] VITALS: Ht 177.8 cm; Wt 106.8 kg
--- NOTE | 2022-01-28 01:39 | PHYS DOC ---
Past History Past Medical History: Arthritis, CHF, Dementia, GERD, High Cholesterol Past Surgical History: Appendectomy, Tonsillectomy Alcohol Use: Sober Adult General HPI HPI Patient is an 81-year-old male who presents to the emergency department stating that he woke up a couple hours ago and just felt off. States he cannot explain it but decided to come to the emergency department just in case something was wrong. Denies any recent traumas, travels, illnesses, fevers, chest pain, shortness of breath, abdominal pain, nausea, vomiting, diarrhea. Denies any dyspnea on exertion, orthopnea, PND or edema. States he has been eating and dr inking normally for him. States he is making urine and stool normally for him with no blood in either. Denies any numbness/weakness/tingling, slurred speech or facial droop. States he is able to sit, stand and walk without issue. States he is taking all his medications as prescribed. States he has had some issues with anxiety recently. Review of Systems Review of Systems Review of systems otherwise unremarkable except noted in HPI Allergies Allergies Allergies Coded Allergies Type Severity Reaction Last Updated Verified No Known Drug Allergies 12/27/21 No Physical Exam Physical Exam Constitutional: Well developed, well nourished, no acute distress, non-toxic appearance. [] HENT: Normocephalic, atraumatic, bilateral external ears normal, oropharynx moist, no oral exudates, nose normal. [] Eyes: conjunctiva normal, no discharge. [] Neck: Normal range of motion, no tenderness, supple, no stridor. [] Cardiovascular:Heart rate regular rhythm, no murmur [] Lungs & Thorax: Bilateral breath sounds clear to auscultation [] Abdomen: Bowel sounds normal, soft, no tenderness, no masses, no pulsatile masses. [] Skin: Warm, dry, no erythema, no rash. [] Back: no CVA tenderness. [] Extremities: No tenderness, no cyanosis, no clubbing, ROM intact, no edema. [] Neurologic: Alert and oriented X 3, normal motor function, normal sensory function, able to sit, stand and walk without issue, no focal deficits noted. [] Psychologic: Affect normal, judgement normal, mood normal. [] EKG EKG [] Radiology/Procedures Radiology/Procedures [] Heart Score C/O Chest Pain: No Risk Factors: Risk Factors: DM, Current or recent (<one month) smoker, HTN, HLP, family history of CAD, obesity. Risk Scores: Risk Factors: DM, Current or recent (<one month) smoker, HTN, HLP, family history of CAD, obesity. Course & Med Decision Making Course & Med Decision Making Patient is an 81-year-old male who presents to the emergency department stating that he just felt off and decided to come to the emergency department to make sure nothing was wrong Vital signs nonconcerning. Physical exam noted above. EKG with a rate of 62, QRS of 95, QTc of 437, no STEMI. Troponin normal. Chest x-ray not concerning. Laboratory analysis not concerning. Discussed all findings with patient. Advised to follow-up this morning with primary care physician update on ED visit and set up follow-up for reevaluation as soon as possible. Gave strict return precautions to the ED. Patient grateful, verbalized understanding and agreed with plan of discharge [] Dragon Disclaimer Dragon Disclaimer This electronic medical record was generated, in whole or in part, using a voice recognition dictation system. Departure Departure: Impression: Primary Impression: Fatigue Additional Impression: Feeling anxious Disposition: 01 HOME / SELF CARE / HOMELESS Condition: STABLE Referrals: SANDRO COOK DO (PCP) Patient Instructions: Fatigue Additional Instructions: Thank you for coming into the emergency department tonight and allowing us to take care of you. Please read the attached information carefully to go over things we discussed. Although our work-up here in the emergency department is reassuring, that does not mean there is not something that is going on that needs to be reevaluated and monitored. As we discussed, please call your primary care physician first thing this morning to update on your ED visit and set up a follow-up appointment as soon as possible. Please come back to the emergency department immediately with new or concerning symptoms as we discussed. Problem Qualifiers DARELL COTA MD January 28, 2022 01:39
[2022-01-28 02:34] LABS: BASO # 0.1 x10^3/uL (0.0-0.2); BASO % 1 % (0-3); EOS # 0.6 x10^3/uL (0.0-0.7); EOS % 9 % (0-3); HEMOGLOBIN 13.7 g/dL (13.0-17.5); LYMPH # 1.6 x10^3/uL (1.0-4.8); LYMPH % 24 % (24-48); MEAN CORPUSCULAR HEMOGLOBIN 33 pg (25-35); MEAN CORPUSCULAR HGB CONC 33 g/dL (31-37); MEAN CORPUSCULAR VOLUME 99 fL (79-100); MONO % 15 % (0-9); NEUT # 3.4 x10^3uL (1.8-7.7); NEUT % 52 % (31-73); PLATELET COUNT 128 x10^3/uL (140-400); RED BLOOD COUNT 4.15 x10^6/uL (4.30-5.70); RED CELL DISTRIBUTION WIDTH 14.1 % (11.5-14.5); WHITE BLOOD COUNT 6.5 x10^3/uL (4.0-11.0)
--- NOTE | 2022-01-28 02:46 | RAD ---
XR CHEST 1V Clinical History: Reason: w/u / Spl. Instructions: / History: Technique: AP view of the chest was obtained at 01/28/2022 1:55 AM. Comparison: January 06, 2022. Findings: The cardiomediastinal silhouette is normal. The pulmonary vasculature is normal. The lungs and pleura l margins are clear. Impression: No evidence of an acute cardiopulmonary process. Electronically signed by: Hussain Youssef III, MD (01/28/2022 2:44 AM) [facility]
[2022-01-28 03:44] VITALS: BP 133/64
[2022-01-28 04:04] LABS: CALCIUM 8.3 mg/dL (8.5-10.1); GFR 71.7; POTASSIUM 3.7 mmol/L (3.5-5.1)
== END 2022-01-28 04:55 | disposition home or self-care (01) ==
LOC: ER 01:27
DX: R53.83 Other fatigue (principal); M19.90 Unspecified osteoarthritis, unspecified site; I50.9 Heart failure, unspecified; F03.90 Unspecified dementia, unspecified severity, without behavioral disturbance, psychotic disturbance, mood disturbance, and anxiety; K21.9 Gastro-esophageal reflux disease without esophagitis; E78.00 Pure hypercholesterolemia, unspecified
CPT/HCPCS: 36415; 71045; 80048; 83735; 84484; 85025; 99283; 99284